=== PATIENT | female | born 1955 | race Caucasian/White ===

== ENCOUNTER 2022-03-16 19:52 | Inpatient (IN) ==
[2022-03-16] MEDS ORDERED: IOPAMIDOL 100 ML BOTTLE IV ONE (19:53)
--- NOTE | 2022-03-16 20:41 | Emergency Department Note ---
Weakness HPI General Chief complaint: Weakness Stated complaint: weakness Time Seen by Provider: 03/16/22 20:40 Source: patient and family (Daughter) Mode of arrival: EMS Limitations: altered mental status (Secondary to her present health condition.) and physical limitation (Poor health prevented her from being able to provide meaningful history.) History of Present Illness HPI Narrative: Narrative: 66-year-old female presents to the emergency department with a chief complaint "I do not feel good" when queried about this the patient kept repeating the same words and could provide no additional information. She indicated she did not have any pain. The rest of the history came from the daughter. Daughter states that the patient has had multiple COPD exacerbations in the past. She states that when her carbon oxide level gets too high the patient's thinking is impaired. She has received BiPAP in the hospital before which has improved her condition. She states she discussed it with her uncle and brother who live in [place]. They [place] [facility] [place] for [place] in [place] but stated that she needed to be assessed here now since this was an acute problem. Patient was ill last week and fell and hit her head. She was seen emergency room and had a CT that was negative and she was discharged home. Her prednisone was in creased during last week. States that she has had some confusion for the past 2 days. States she fell today though they do not think she banged her head they are not sure. Patient's past medical history includes severe COPD, diabetes, anxiety, depression, other. Related Data Home Medications Medication Instructions Recorded Confirmed acetaminophen 500 mg capsule 1,000 mg PO QID PRN 01/14/22 01/27/22 albuterol sulfate 90 mcg/actuation 2 puff inhalation Q4H PRN 01/14/22 01/27/22 aerosol inhaler apixaban 5 mg tablet (Eliquis) 5 mg PO BID 01/14/22 01/27/22 arformoterol 15 mcg/2 mL solution 2 ml inhalation Q12H 01/14/22 01/27/22 for nebulization (Brovana) budesonide 0.25 mg/2 mL suspension 0.25 mg inhalation BID 01/14/22 01/27/22 for nebulization calcium carbonate 600 mg calcium 600 mg PO QDAY 01/14/22 01/27/22 (1,500 mg) tablet (Calcium) cholecalciferol (vitamin D3) 50 50 mcg PO QDAY 01/14/22 01/27/22 mcg (2,000 unit) tablet duloxetine 30 mg capsule,delayed 30 mg PO QAM 01/14/22 01/27/22 release furosemide 20 mg tablet 20 mg PO QDAY 01/14/22 01/27/22 gabapentin 600 mg tablet 600 mg PO TID PRN 01/14/22 01/27/22 insulin aspart U-100 100 unit/mL 1 sliding scale dose subcut 01/14/22 01/27/22 (3 mL) subcutaneous pen (Novolog USEASDIRECTD FlexPen U-100 Insulin aspart) insulin glargine 100 unit/mL (3 15 unit subcut BID 01/14/22 01/27/22 mL) subcutaneous pen (Lantus Solostar U-100 Insulin) ipratropium 0.5 mg-albuterol 3 mg 3 ml inhalation Q6H 01/14/22 01/27/22 (2.5 mg base)/3 mL nebulization soln metformin 1,000 mg tablet 1,000 mg PO BID 01/14/22 01/27/22 metoprolol succinate 25 mg 50 mg PO BID 01/14/22 01/27/22 tablet,extended release 24 hr omeprazole 20 mg capsule,delayed 20 mg PO QDAY 01/14/22 01/27/22 release oxycodone 5 mg tablet 5 mg PO Q8H PRN 01/14/22 01/27/22 pramipexole 0.125 mg tablet 0.125 mg PO QHS 01/14/22 01/27/22 prednisone 10 mg tablet 20 mg PO QDAY 01/14/22 01/27/22 simvastatin 20 mg tablet 20 mg PO QPM 01/14/22 01/27/22 spironolactone 25 mg tablet 12.5 mg PO QDAY 01/14/22 01/27/22 tramadol 50 mg tablet 50 mg PO QID 01/14/22 01/27/22 Previous Rx's Medication Instructions Recorded prednisone 20 mg tablet 40 mg PO QDAY #10 tabs 03/09/22 Allergies Allergy/AdvReac Type Severity Reaction Status Date / Time codeine Allergy Difficulty Verified 03/09/22 07:18 Breathing sulfamethoxazole Allergy Unknown Verified 03/09/22 07:18 [From Bactrim] trimethoprim [From Bactrim] Allergy Difficulty Verified 03/09/22 07:18 Breathing Review of Systems ROS ROS Narrative: Narrative: Limitations: ROS unobtainable due to patients medical condition [facility] Narrative Patient History Narrative: Narrative: Medical/Surgical/Family History All Active Problems (Updated 03/17/22 @ 03:34 by Ulisses King MD) COPD exacerbation (Acute) Acute respiratory failure (Acute) Hepatitis C (Chronic) Smokers' cough (Chronic) Normocytic anemia (Chronic) High cholesterol (Chronic) Heartburn (Chronic) Esophageal spasm (Chronic) CAD (coronary artery disease) (Chronic) Cancer (Chronic) Tachycardia (Chronic) Dyspnea (Chronic) Fatigue (Chronic) Sepsis (Chronic) RLL pneumonia (Chronic) Mela glabrata infection (Chronic) Diabetic foot ulcer (Chronic) Lymphedema (Chronic) Chronic pain (Chronic) HTN (hypertension) (Chronic) Dyslipidemia (Chronic) Opioid overdose (Chronic) Abdominal wall abscess (Chronic) Otitis externa (Chronic) Earache (Chronic) Other obesity due to excess calories (Chronic) Tobacco use (Chronic) Low back pain (Chronic) Dependence on supplemental oxygen (Chronic) Personal history of (healed) other pathological fracture (Chronic) Osteoporosis (Chronic) halfway (current) use of systemic steroids (Chronic) COPD (chronic obstructive pulmonary disease) (Chronic) GERD (gastroesophageal reflux disease) (Chronic) Hyperlipidemia, mixed (Chronic) Pulmonary embolism (Chronic) Afib (Chronic) 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) Hyperglycemia (Chronic) Polyneuropathy (Chronic) DM type 2 (diabetes mellitus, type 2) (Chronic) Hypoxia (Chronic) SOB (shortness of breath) (Chronic) Pneumonia (Chronic) Chronic hypoxemic respiratory failure (Chronic) Bronchitis (Chronic) Medical History Abdominal wall abscess Afib Bronchitis CAD (coronary artery disease) Cancer Mela glabrata infection Chronic hypoxemic respiratory failure Chronic pain COPD (chronic obstructive pulmonary disease) Dependence on supplemental oxygen Diabetic foot ulcer DM type 2 (diabetes mellitus, type 2) Dyslipidemia Dyspnea Earache Esophageal spasm Fatigue GERD (gastroesophageal reflux disease) Heartburn Hepatitis C High cholesterol HTN (hypertension) Hyperglycemia Hyperlipidemia, mixed Hypoxia intermodal customer service (current) use of insulin halfway (current) use of systemic steroids Low back pain Lymphedema Normocytic anemia Opioid overdose Osteoporosis Other obesity due to excess calories Otitis externa Left Personal history of (healed) other pathological fracture Pneumonia Polyneuropathy Pulmonary embolism RLL pneumonia Sepsis Right lower lobe infiltrate and to lesser extent left lower lobe Smokers' cough SOB (shortness of breath) Tachycardia Tobacco use Surgical History History of cataract surgery Both Eyes History of elbow surgery (~1980) Right History of surgery (~1978) Colonization History of tubal ligation (~1992) Family History Mother Heart disease COPD (chronic obstructive pulmonary disease) Father Heart disease Diabetes Hx of heart bypass surgery x4 bypass surgery Social History Smoking Status: Former smoker Alcohol Intake Frequency: does not drink Substance Use: does not use Exam Narrative Narrative: Narrative: General Limitations: altered mental status (Secondary to her present health condition.) and physical limitation (Poor health prevented her from being able to provide meaningful history.) General appearance: Present sleepy Head Head: Present atraumatic and normocephalic Eye Eye: Present normal appearance; Absent scleral icterus Respiratory Respiratory: Present respiratory distress and prolonged expiratory phase; Absent wheezes Cardiovascular Cardiovascular: Present normal rhythm and tachycardia Adbominal Abdominal: Present soft; Absent tenderness Extremities Extremities: Present pedal edema Back Back: Absent tenderness Neurological Neurological: Absent oriented X3 (She was oriented to the location as being a hospital. She could not answer who the president was. For the dates she could say February 2022 but not more specifically.) Skin Skin: Present warm (WNL) and dry Course Vital Signs Vital signs: Vital Signs Temperature 97.5 F 03/16/22 19:52 Pulse Rate 103 H 03/16/22 19:52 Respiratory Rate 16 03/16/22 19:52 Blood Pressure 124/91 03/16/22 19:52 Pulse Oximetry (%) 97 03/16/22 19:52 Oxygen Delivery Method 03/16/22 19:52 Oxygen Flow Rate (L/min) 3 03/16/22 19:52 Temperature 98.8 F 03/17/22 00:57 Pulse Rate 105 H 03/17/22 03:01 Respiratory Rate 20 03/17/22 03:01 Blood Pressure 114/78 03/17/22 03:01 Pulse Oximetry (%) 93 03/17/22 03:01 Oxygen Delivery Method 03/17/22 03:01 Oxygen Flow Rate (L/min) 3 03/17/22 00:52 MDM MDM Narrative Medical decision making narrative: Narrative: 66-year-old female brought in because not feeling good. Differential diagnosis includes COPD exacerbation, pneumonia, sepsis, intracranial bleed, metabolic abnormality, other With the patient being oriented only x2 and questionable history regarding falls I obtain head CT to evaluate for intercranial bleed. Head CT read by the radiologist with the following impression: No CT evidence of acute intracranial hemorrhage CVA or mass-effect. Mild age-related parenchymal volume loss and mild chronic deep white matter ischemic changes. EKG was obtained which revealed sinus rhythm with normal axis and no ischemic changes. Shortness of breath was thought to be secondary to COPD exacerbation but PE was a consideration. D-dimer was obtained and was elevated at 1.98. Based on this I obtained a CT angiogram of the chest looking for PE. This was read by radiologist as showing: Unremarkable CTA of the chest for PE. Diffuse emphysema. Posterior basilar atelectasis. Mild to moderate cardiac enlargement. Moderate diffuse heterogeneous coronary artery calcification. Diffuse compression fractures of thoracic spine. Laboratory: White count was elevated at 11.8 with 78% neutrophils and 12.5% lymphs. Sodium was 141 potassium 4.2 chloride was low at 86. BUN was elevated at 29 with a normal creatinine of 0.6. Glucose was mildly elevated at 118. BNP was markedly elevated at 4220. Surprisingly the patient a pulse ox of 100% on 3 L of O2. Patient is chronically on 3 L of O2. I obtained a VBG because of this illogical oxygenation level. VBG revealed a pH of 7.32. PCO2 112 which is markedly elevated. PO2 of 33 which is normal. HCO3 of 58 which is markedly elevated. Total CT O2 of greater than 50 which is markedly elevated. At this point I assessed the patient to be in acute respiratory failure. I ordered BiPAP. I ordered albuterol DuoNeb. Patient was given Solu-Medrol 125 mg IV. Considered sepsis. I obtained blood cultures x2 and started antibiotics ceftriaxone and azithromycin. I obtained a lactate level which was normal at 0.9. Patient's white count was 11.8 and SIRS criteria was greater than 12.Patient's respiratory rate was normal. She was borderline for tachycardia. I tested the patient for influenza A, influenza B, COVID. Patient was negative for all 3. Chest x-ray obtained. Similar to prior chest x-ray. I discussed the case with the hospitalist . He agreed to meet the patient to the hospital ICU with BiPAP. He requested CTA which was performed and did not show a DVT. Daughter expressed to me that her mother's resuscitation desire was DO NOT RESUSCITATE. Lab Data Result diagrams: 03/16/22 21:05 Labs: Lab Results 03/16/22 03/16/22 03/16/22 Range/Units 21:05 21:05 21:05 WBC 11.8 H (4.5-11.0) K/mcL RBC 4.68 (3.59-5.38) M/mcL Hgb 10.3 L (11.2-15.7) g/dL Hct 39.6 (34.1-44.9) % POC Hct (36-48) MCV 84.6 (80.0-100.0) fL MCH 22.0 L (26.0-34.0) pg MCHC 26.0 L (31.0-36.0) g/dL RDW 16.0 H (11.5-14.5) % Plt Count 259 (140-440) K/mcL MPV 10.8 (8.8-12.5) fL Immature Gran % (Auto) 0.6 H (0.0-0.5) % Neut % (Auto) 77.9 (38.0-78.0) % Lymph % (Auto) 12.5 L (15.5-49.0) % [place] % (Auto) 8.3 (1.0-12.0) % Eos % (Auto) 0.6 (0.0-7.0) % Baso % (Auto) 0.1 (0.0-2.0) % Lymph # (Auto) 1.47 L (1.50-4.80) K/mcL [place] # (Auto) 0.98 H (0.10-0.90) K/mcL Eos # (Auto) 0.07 (0.00-0.70) K/mcL Baso # (Auto) 0.01 (0.00-0.30) K/mcL Immature Gran # 0.07 H (0.00-0.05) K/mcl Absolute Neutrophils 9.18 H (1.80-8.00) K/mcL D-Dimer 1.98 H (0.27-0.50) ug/mL POC VBG pH (7.32-7.42) POC VBG pCO2 at Temp (41-51) POC VBG pO2 (25-40) POC VBG HCO3 (24-28) POC VBG Total CO2 (25-29) POC Venous O2 Sat (40-70) POC VBG Base Excess (-2-2) VBG Lactic Acid (0.5-2) POC Sodium (133-145) POC Potassium (3.3-5.1) POC Chloride (96-108) POC Total CO2 (22-30) POC BUN (6-20) POC Creatinine (0.6-1.2) POC Glucose (70-105) POC WB Ioniz Calcium (1.16-1.32) Total Bilirubin 0.3 (0.1-1.0) mg/dL Direct Bilirubin < 0.2 (0-0.3) mg/dL AST 31 (<32) U/L ALT 17 (<40) U/L Alkaline Phosphatase 61 (39-117) U/L NT-Pro-B Natriuret Pep (<125.0) pg/mL Total Protein 6.1 (5.9-8.4) gm/dL Albumin 3.9 (3.2-5.2) gm/dL Globulin 2.2 (2.2-3.7) gm/dL 03/16/22 03/16/22 03/16/22 Range/Units 21:05 21:15 21:19 WBC (4.5-11.0) K/mcL RBC (3.59-5.38) M/mcL Hgb (11.2-15.7) g/dL Hct (34.1-44.9) % POC Hct 39.0 (36-48) MCV (80.0-100.0) fL MCH (26.0-34.0) pg MCHC (31.0-36.0) g/dL RDW (11.5-14.5) % Plt Count (140-440) K/mcL MPV (8.8-12.5) fL Immature Gran % (Auto) (0.0-0.5) % Neut % (Auto) (38.0-78.0) % Lymph % (Auto) (15.5-49.0) % [place] % (Auto) (1.0-12.0) % Eos % (Auto) (0.0-7.0) % Baso % (Auto) (0.0-2.0) % Lymph # (Auto) (1.50-4.80) K/mcL [place] # (Auto) (0.10-0.90) K/mcL Eos # (Auto) (0.00-0.70) K/mcL Baso # (Auto) (0.00-0.30) K/mcL Immature Gran # (0.00-0.05) K/mcl Absolute Neutrophils (1.80-8.00) K/mcL D-Dimer (0.27-0.50) ug/mL POC VBG pH 7.32 (7.32-7.42) POC VBG pCO2 at Temp 112.0 H* (41-51) POC VBG pO2 33 (25-40) POC VBG HCO3 57.9 H* (24-28) POC VBG Total CO2 > 50.0 H* (25-29) POC Venous O2 Sat 51.0 (40-70) POC VBG Base Excess > 30.0 H* (-2-2) VBG Lactic Acid 0.9 (0.5-2) POC Sodium 141 (133-145) POC Potassium 4.2 (3.3-5.1) POC Chloride 86 L (96-108) POC Total CO2 > 50.0 H* (22-30) POC BUN 29 H (6-20) POC Creatinine 0.6 (0.6-1.2) POC Glucose 118 H (70-105) POC WB Ioniz Calcium 1.11 L (1.16-1.32) Total Bilirubin (0.1-1.0) mg/dL Direct Bilirubin (0-0.3) mg/dL AST (<32) U/L ALT (<40) U/L Alkaline Phosphatase (39-117) U/L NT-Pro-B Natriuret Pep 4220.0 H (<125.0) pg/mL Total Protein (5.9-8.4) gm/dL Albumin (3.2-5.2) gm/dL Globulin (2.2-3.7) gm/dL ED POC Tests ED POC Tests: FLORINA - Influenza A Negative FLORINA - Influenza B Negative [place] - SARS Antigen Negative CC TIME Critical Care Time Critical Care Time: Yes Total Critical Care Time: 40 Attestation: Total critical care time exceeded 40 minutes exclusive of all procedures. Critical care required because the patient respiratory inadequacy secondary to COPD exacerbation. Patient required BiPAP intervention and consideration of whether that the patient might require intubation. Patient's CODE STATUS was determined ahead of time. Discharge Plan Patient/Caregiver Discharge Instructions Pt seen by [facility]/PA only: No Clinical Impression: Acute respiratory failure Patient Disposition: Xfer As Inpt ([facility]) Condition: Serious Discharge Date/Time: 03/17/22 00:57
[2022-03-16] MEDS ORDERED: BENAZEPRIL 10 MG TABLET PO ONE (21:13)
[2022-03-16 21:22] LABS: POC Blood Urea Nitrogen 29 (6-20); POC CO2 > 50.0 (22-30); POC Calcium, Ionized 1.11 (1.16-1.32); POC Chloride 86 (96-108); POC Creatinine 0.6 (0.6-1.2); POC Glucose, Random 118 (70-105); POC Potassium 4.2 (3.3-5.1); POC Sodium 141 (133-145)
[2022-03-16 21:41] LABS: Basophils # (Auto) 0.01 K/mcL (0.00-0.30); Basophils % (Auto) 0.1 % (0.0-2.0); Eosinophils # (Auto) 0.07 K/mcL (0.00-0.70); Eosinophils % (Auto) 0.6 % (0.0-7.0); Hematocrit 39.6 % (34.1-44.9); Hemoglobin 10.3 g/dL (11.2-15.7); Lymphocytes # (Auto) 1.47 K/mcL (1.50-4.80); Lymphocytes % (Auto) 12.5 % (15.5-49.0); Mean Cell Volume 84.6 fL (80.0-100.0); Mean Platelet Volume 10.8 fL (8.8-12.5); Monocytes # (Auto) 0.98 K/mcL (0.10-0.90); Monocytes % (Auto) 8.3 % (1.0-12.0); Neutrophils % (Auto) 77.9 % (38.0-78.0); Platelet Count 259 K/mcL (140-440); RBC 4.68 M/mcL (3.59-5.38); WBC 11.8 K/mcL (4.5-11.0)
[2022-03-16] MEDS ORDERED: methylPREDNISolone SOD SUCC 125 MG/2 ML VIAL IV ONE (21:48)
[2022-03-16] MEDS ORDERED: IPRATROPIUM/ALBUTEROL 3 ML AMPUL.NEB NEB ONE (22:09)
[2022-03-16] MEDS ORDERED: cefTRIAXone 1 GM VIAL IV ONE (22:09)
[2022-03-16] MEDS ORDERED: AZITHROMYCIN 500 MG in DEXTROSE 5% IN WATER 250 ML IV ONE (22:09)
[2022-03-16 22:10] LABS: ALT/SGPT 17 U/L (<40); AST/SGOT 31 U/L (<32); Albumin 3.9 gm/dL (3.2-5.2); Alkaline Phosphatase 61 U/L (39-117); Bilirubin,Direct < 0.2 mg/dL (0-0.3); Bilirubin,Total 0.3 mg/dL (0.1-1.0); Globulin 2.2 gm/dL (2.2-3.7)
[2022-03-17] MEDS ORDERED: cefTRIAXone 1 GM VIAL IV SCH (00:15)
[2022-03-17] MEDS ORDERED: AZITHROMYCIN 250 MG in DEXTROSE 5% IN WATER 250 ML IV SCH (00:15)
[2022-03-17] MEDS: IPRATROPIUM/ALBUTEROL 3 ML AMPUL.NEB NEB SCH ×2 (01:15→06:51)
[2022-03-17] MEDS: 0.9 % SODIUM CHLORIDE 10 ML SYRINGE IV SCH ×6 (02:21→20:13)
[2022-03-17] MEDS: ALBUTEROL SULFATE 2.5 MG/3 ML NEBULIZER NEB SCH ×3 (02:22→14:31)
--- NOTE | 2022-03-17 03:00 | XRay Report ---
CLINICAL INFORMATION: COPD COMPARISON: 11/13/2021 and 03/09/2022 TECHNIQUE: Portable FINDINGS: The heart is mildly enlarged-slightly increased. Mediastinum is unremarkable. The upper lobe pulmonary vasculature is mildly distended compared to the earliest baseline film. Chronic bronchitis noted. Moderate vague region of airspace disease has progressed in the right mid and lower lung-suspect infiltrate superimposed upon mild fibrosis. Minimal airspace disease left base was pre-existing and likely atelectasis or fibrosis. IMPRESSION: Moderate vague right mid and lower lung infiltrate. Mild underlying CHF or volume overload Interpreted and Authenticated by: Nick Rodriguez 03/17/22
--- NOTE | 2022-03-17 03:22 | Cat Scan Report ---
CLINICAL INFORMATION: Shortness of breath and elevated d-dimer. History of COPD COMPARISON: Chest x-rays 11/13/2021 and 03/16/2022. TECHNIQUE: 80ml of Isovue-370 were injected intravenously. Using SmartPrep to maximize pulmonary artery opacification, .625mm helical slices were obtained from the lung apices through the lung bases. Following reconstruction, 2.5 mm sagittal, coronal, and axial reformations were processed. The exam was reviewed at mediastinal, lung, and bone windows. The exam was performed using radiation dose optimization techniques including, but not limited to, automated exposure control, adjustment of the mA and/or kV according to patient size and use of iterative reconstruction technique. FINDINGS: Pulmonary parenchymal windows show severe centrilobular emphysema featuring chronic bronchitis with elevated lung volumes and wall thickening/dilatation of bronchi. There are multiple bullae nearly replacing the upper lobe parenchyma and also scattered throughout both lower right middle lobes. Moderate band of subsegmental atelectasis and/or fibrosis seen throughout both posterior lower lobes. There are no definite infiltrates or interstitial edema.. Pleural spaces are unremarkable-no effusions. Mediastinal windows show the heart is moderately enlarged with moderate fibrofatty calcific plaque scattered within the coronary arteries.. The central pulmonary arteries are enlarged with the main pulmonary diameter 3.6 cm. Findings compatible with pulmonary hypertension related to COPD. No evidence of embolus. Thoracic aorta is also normal diameter and well-opacified. There is no adenopathy in the mediastinal, hilar or axillary regions. Esophagus is grossly normal. The thyroid is unremarkable. Bone windows show acute mildly displaced fractures of the posterior right first and second ribs. Multiple osteoporotic compression fractures appreciated mild T1, severe T2, moderate T3, moderate C4, moderate T7 moderate to severe T9 and mild T12 and L1. Chronicity unknown. Images through the superior abdomen are unremarkable. IMPRESSION: 1. No evidence of pulmonary embolus or other acute cardiopulmonary process. 2. Severe centrilobular emphysema with pulmonary hypertension. 3. Moderate cardiomegaly with moderate fibrofatty and calcific atherosclerotic plaque in the coronary arteries. Suspect significant coronary stenosis. Consider cardiology referral for stress testing. 4. Multiple osteoporotic compression fractures throughout the thoracic spine of indeterminate chronicity. Consider DEXA scanning. Patient may benefit from medical therapy for future fracture prevention 5. Acute minimally displaced fractures of the posterior right first and second ribs Interpreted and Authenticated by: Nick Rodriguez 03/17/22
--- NOTE | 2022-03-17 08:38 | Internal Med History&Physical ---
HPI History of Present Illness Patient information: Note initiated : 03/17/22 at 8:29 am Service Date, if different from initiated Date: [] Patient: Ki Fontana a 66 y/o F admitted on 03/17/22 for weakness. Chief Complaint: [] History of present illness: Ms. Elsa Bunch is a 66 year old F Presents the ED for increased weakness and failure to thrive. Patient says she just did not feel right and she stated to triage that she was having a COPD attack. Per EMS she has been having falls recently. She was mildly tachycardic in the ER and mildly tachypneic. Oxygen saturations were adequate but she was retaining CO2. And her pH was borderline low on VBG of 7.32. She had very mild leukocytosis 11.8. Elevated D-dimer and CTA showed no PE but severe emphysema. No infiltrates. It did show acute minimally displaced fracture of the posterior right first and second ribs. Metabolic alkalosis with this CO2 greater than 50. Per notes the daughter said that patient has a history of COPD exacerbations when her CO2 level gets high as her thinking is impaired. Family's been looking for a correction for her [place]. Patient placed on BiPAP overnight. Feeling a little better. She does complain of shortness of breath wheezing and mild cough and some nausea. Sounds like she supposed to get a sleep study outpatient but has not done that yet. She does follow with Dr. Beltran. Was off BiPAP for a while this morning but needed to go back on BiPAP. f/u vbg. Review of Systems: Pertinent positives as above. Denies headache/fever/chills/vomiting/chest or abdominal pain//diarrhea. Remaining 10 point review of system reviewed negative PFSH PFSH All Active Problems (Updated 03/17/22 @ 03:34 by Ulisses King MD) COPD exacerbation (Acute) Acute respiratory failure (Acute) Hepatitis C (Chronic) Smokers' cough (Chronic) Normocytic anemia (Chronic) High cholesterol (Chronic) Heartburn (Chronic) Esophageal spasm (Chronic) CAD (coronary artery disease) (Chronic) Cancer (Chronic) Tachycardia (Chronic) Dyspnea (Chronic) Fatigue (Chronic) Sepsis (Chronic) RLL pneumonia (Chronic) Mela glabrata infection (Chronic) Diabetic foot ulcer (Chronic) Lymphedema (Chronic) Chronic pain (Chronic) HTN (hypertension) (Chronic) Dyslipidemia (Chronic) Opioid overdose (Chronic) Abdominal wall abscess (Chronic) Otitis externa (Chronic) Earache (Chronic) Other obesity due to excess calories (Chronic) Tobacco use (Chronic) Low back pain (Chronic) Dependence on supplemental oxygen (Chronic) Personal history of (healed) other pathological fracture (Chronic) Osteoporosis (Chronic) long-term (current) use of systemic steroids (Chronic) COPD (chronic obstructive pulmonary disease) (Chronic) GERD (gastroesophageal reflux disease) (Chronic) Hyperlipidemia, mixed (Chronic) Pulmonary embolism (Chronic) Afib (Chronic) long-term (current) use of insulin (Chronic) Hyperglycemia (Chronic) Polyneuropathy (Chronic) DM type 2 (diabetes mellitus, type 2) (Chronic) Hypoxia (Chronic) SOB (shortness of breath) (Chronic) Pneumonia (Chronic) Chronic hypoxemic respiratory failure (Chronic) Bronchitis (Chronic) Medical History Abdominal wall abscess Afib Bronchitis CAD (coronary artery disease) Cancer Mela glabrata infection Chronic hypoxemic respiratory failure Chronic pain COPD (chronic obstructive pulmonary disease) Dependence on supplemental oxygen Diabetic foot ulcer DM type 2 (diabetes mellitus, type 2) Dyslipidemia Dyspnea Earache Esophageal spasm Fatigue GERD (gastroesophageal reflux disease) Heartburn Hepatitis C High cholesterol HTN (hypertension) Hyperglycemia Hyperlipidemia, mixed Hypoxia long-term (current) use of insulin long-term (current) use of systemic steroids Low back pain Lymphedema Normocytic anemia Opioid overdose Osteoporosis Other obesity due to excess calories Otitis externa Left Personal history of (healed) other pathological fracture Pneumonia Polyneuropathy Pulmonary embolism RLL pneumonia Sepsis Right lower lobe infiltrate and to lesser extent left lower lobe Smokers' cough SOB (shortness of breath) Tachycardia Tobacco use Surgical History History of cataract surgery Both Eyes History of elbow surgery (~1980) Right History of surgery (~1978) Colonization History of tubal ligation (~1992) Family History Mother Heart disease COPD (chronic obstructive pulmonary disease) Father Heart disease Diabetes Hx of heart bypass surgery x4 bypass surgery Social History marital status: occupational status: unemployed and disabled smoking status: Former smoker smoking status start date: 02/27/74 smoking status stop date: 02/27/18 alcohol intake frequency: does not drink substance use type: does not use MEDS/ALLERGIES Home Medications and Allergies Home Medications Medication Instructions Recorded Confirmed Type acetaminophen 500 mg capsule 1,000 mg PO QID PRN 01/14/22 01/27/22 History albuterol sulfate 90 mcg/actuation 2 puff inhalation Q4H PRN 01/14/22 03/17/22 History aerosol inhaler Shortness Of Breath apixaban 5 mg tablet (Eliquis) 5 mg PO BID 01/14/22 03/17/22 History arformoterol 15 mcg/2 mL solution 2 ml inhalation Q12H 01/14/22 01/27/22 History for nebulization (Brovana) budesonide 0.25 mg/2 mL suspension 0.25 mg inhalation BID 01/14/22 01/27/22 History for nebulization calcium carbonate 600 mg calcium 600 mg PO QDAY 01/14/22 01/27/22 History (1,500 mg) tablet (Calcium) cholecalciferol (vitamin D3) 50 50 mcg PO QDAY 01/14/22 01/27/22 History mcg (2,000 unit) tablet duloxetine 30 mg capsule,delayed 30 mg PO QAM 01/14/22 03/17/22 History release furosemide 20 mg tablet 20 mg PO QDAY 01/14/22 03/17/22 History gabapentin 600 mg tablet 600 mg PO TID 01/14/22 03/17/22 History insulin aspart U-100 100 unit/mL 1 sliding scale dose subcut ACHS 01/14/22 03/17/22 History (3 mL) subcutaneous pen (Novolog FlexPen U-100 Insulin aspart) insulin glargine 100 unit/mL (3 15 unit subcut BID 01/14/22 03/17/22 History mL) subcutaneous pen (Lantus Solostar U-100 Insulin) ipratropium 0.5 mg-albuterol 3 mg 3 ml inhalation Q6H 01/14/22 01/27/22 History (2.5 mg base)/3 mL nebulization soln metformin 1,000 mg tablet 1,000 mg PO BID 01/14/22 03/17/22 History metoprolol succinate 25 mg 50 mg PO BID 01/14/22 03/17/22 History tablet,extended release 24 hr omeprazole 20 mg capsule,delayed 20 mg PO QDAY 01/14/22 03/17/22 History release oxycodone 5 mg tablet 5 mg PO Q6HP PRN Pain 01/14/22 03/17/22 History pramipexole 0.125 mg tablet 0.125 mg PO QHS 01/14/22 03/17/22 History prednisone 10 mg tablet 20 mg PO QDAY 01/14/22 03/17/22 History simvastatin 20 mg tablet 20 mg PO QPM 01/14/22 03/17/22 History spironolactone 25 mg tablet 12.5 mg PO QDAY 01/14/22 03/17/22 History tramadol 50 mg tablet 50 mg PO QID 01/14/22 03/17/22 History Allergies Allergy/AdvReac Type Severity Reaction Status Date / Time codeine Allergy Severe Difficulty Verified 03/17/22 06:57 Breathing sulfamethoxazole Allergy Severe Difficulty Verified 03/17/22 06:57 [From Bactrim] Breathing trimethoprim [From Bactrim] Allergy Severe Difficulty Verified 03/17/22 06:57 Breathing EXAM Constitutional Vitals: Temp Pulse Resp BP Pulse Ox O2 Del Method O2 Flow Rate 98.2 F 103 H 35 H 104/63 94 3 03/17/22 04:01 03/17/22 07:01 03/17/22 07:01 03/17/22 07:01 03/17/22 07:01 03/17/22 07:01 03/17/22 00:52 Exam: General: Awake, no acute Distress, obese Eyes/N/T: EOMI, PERRL, Head/Neck: neck supple, normocephalic atraumatic CV: RRR, No murmurs, normal s1/s2 Pulm: Mild rales b/l, diminished BS b/l Abd: soft, nontender, +BS x4 Ext: no clubbing/cyanosis/edema Neuro: Alert, slightly drowsy. Hard of hearing., no focal deficits, moves all extremities, CN 2-12 grossly intact, sensations intact b/l upper/lower Skin: warm/dry DATA Data Completed and Pending Labs: Labs from last 24 hours 03/17/22 03/16/22 03/16/22 07:50 21:19 21:15 WBC RBC Hgb Hct POC Hct 39.0 MCV MCH MCHC RDW Plt Count MPV Immature Gran % (Auto) Neut % (Auto) Lymph % (Auto) [place] % (Auto) Eos % (Auto) Baso % (Auto) Lymph # (Auto) [place] # (Auto) Eos # (Auto) Baso # (Auto) Immature Gran # Absolute Neutrophils D-Dimer POC VBG pH 7.49 H 7.32 POC VBG pCO2 at Temp 59.7 H 112.0 H* POC VBG pO2 38 33 POC VBG HCO3 45.5 H* 57.9 H* POC VBG Total CO2 47.0 H* > 50.0 H* POC Venous O2 Sat 74.0 H 51.0 POC VBG Base Excess 22.0 H* > 30.0 H* VBG Lactic Acid 2.0 0.9 POC Sodium 141 POC Potassium 4.2 POC Chloride 86 L POC Total CO2 > 50.0 H* POC BUN 29 H POC Creatinine 0.6 POC Glucose 118 H POC WB Ioniz Calcium 1.11 L Total Bilirubin Direct Bilirubin AST ALT Alkaline Phosphatase NT-Pro-B Natriuret Pep Total Protein Albumin Globulin 03/16/22 03/16/22 03/16/22 21:05 21:05 21:05 WBC 11.8 H RBC 4.68 Hgb 10.3 L Hct 39.6 POC Hct MCV 84.6 MCH 22.0 L MCHC 26.0 L RDW 16.0 H Plt Count 259 MPV 10.8 Immature Gran % (Auto) 0.6 H Neut % (Auto) 77.9 Lymph % (Auto) 12.5 L [place] % (Auto) 8.3 Eos % (Auto) 0.6 Baso % (Auto) 0.1 Lymph # (Auto) 1.47 L [place] # (Auto) 0.98 H Eos # (Auto) 0.07 Baso # (Auto) 0.01 Immature Gran # 0.07 H Absolute Neutrophils 9.18 H D-Dimer 1.98 H POC VBG pH POC VBG pCO2 at Temp POC VBG pO2 POC VBG HCO3 POC VBG Total CO2 POC Venous O2 Sat POC VBG Base Excess VBG Lactic Acid POC Sodium POC Potassium POC Chloride POC Total CO2 POC BUN POC Creatinine POC Glucose POC WB Ioniz Calcium Total Bilirubin Direct Bilirubin AST ALT Alkaline Phosphatase NT-Pro-B Natriuret Pep 4220.0 H Total Protein Albumin Globulin 03/16/22 21:05 WBC RBC Hgb Hct POC Hct MCV MCH MCHC RDW Plt Count MPV Immature Gran % (Auto) Neut % (Auto) Lymph % (Auto) [place] % (Auto) Eos % (Auto) Baso % (Auto) Lymph # (Auto) [place] # (Auto) Eos # (Auto) Baso # (Auto) Immature Gran # Absolute Neutrophils D-Dimer POC VBG pH POC VBG pCO2 at Temp POC VBG pO2 POC VBG HCO3 POC VBG Total CO2 POC Venous O2 Sat POC VBG Base Excess VBG Lactic Acid POC Sodium POC Potassium POC Chloride POC Total CO2 POC BUN POC Creatinine POC Glucose POC WB Ioniz Calcium Total Bilirubin 0.3 Direct Bilirubin < 0.2 AST 31 ALT 17 Alkaline Phosphatase 61 NT-Pro-B Natriuret Pep Total Protein 6.1 Albumin 3.9 Globulin 2.2 A/P Narrative A/P Narrative: A: *Acute on chronic hypercapnic Respiratory failure: -on bipap o/n *AECOPD (on 3@home): on prednisone at home -Follows with Dr. Beltran *Encephalopathy, metabolic: 2/2 above *Immunosuppressed: On chronic prednisone 2/2 COPD *Generalized weakness/deconditioning/FTT/falling: *Metabolic alkalosis: 2/2 chronic resp failure *?PIERO: *HTN: on BB/lasix/aldactnoe *DM w/neuropathy: -a1c 7.4 *Chronic pain: *GERD: *Obesity: BMI 30 *Hypomagnesemia: P: -f/u VBG -steroids (wean to home regimen) -nebs, IS/acapella, RT -empiric abx -Monitor/trend and replace electrolytes -cont BB/aldactone/lasix -basal and SSI -pt/ot -CM for placement -qhs cpap -Follow-up closely with Pulmonology, outpatient sleep study -ppx: apixaban / home ppi DNR Time Spent With Patient Time: Total time spent is greater than 50% in coordination of care (as documented) at patient's floor/unit and/or counseling patient: Critical Care Time: Yes Total Critical Care Time: 75 QUALITY VTE Deep Vein Thrombosis/Pulmonary Embolism Present on Admission: No
[2022-03-17] MEDS ORDERED: POLYETHYLENE GLYCOL 3350 17 GM PACKET PO PRN (08:47)
[2022-03-17] MEDS ORDERED: ONDANSETRON 4 MG/2 ML VIAL IV PRN (08:47)
[2022-03-17] MEDS ORDERED: SENNOSIDES 1 TABLET PO PRN (08:47)
[2022-03-17] MEDS ORDERED: MAGNESIUM SULFATE 2 GM/50 ML BAG IV PRN (08:47)
[2022-03-17] MEDS ORDERED: POTASSIUM CHLORIDE 40 MEQ in DEXTROSE 5% IN WATER 500 ML IV PRN (08:47)
[2022-03-17] MEDS ORDERED: POTASSIUM CHLORIDE 20 MEQ TABLET PO PRN ×2 (08:47)
[2022-03-17] MEDS ORDERED: IPRATROPIUM/ALBUTEROL 3 ML AMPUL.NEB NEB PRN (08:49)
[2022-03-17] MEDS ORDERED: DEXTROSE 31 GM ORAL.SUSP PO PRN (08:49)
[2022-03-17] MEDS ORDERED: DEXTROSE 50% 50 ML VIAL IV PRN (08:49)
[2022-03-17] MEDS ORDERED: FAMOTIDINE/PF 20 MG/2 ML VIAL IV SCH (09:00)
[2022-03-17] MEDS ORDERED: IPRATROPIUM/ALBUTEROL 3 ML AMPUL.NEB NEB SCH (09:00)
[2022-03-17 09:04] LABS: Basophils # (Auto) 0.01 K/mcL (0.00-0.30); Basophils % (Auto) 0.1 % (0.0-2.0); Eosinophils # (Auto) 0 K/mcL (0.00-0.70); Eosinophils % (Auto) 0 % (0.0-7.0); Hemoglobin 9.3 g/dL (11.2-15.7); Lymphocytes # (Auto) 0.69 K/mcL (1.50-4.80); Lymphocytes % (Auto) 7.4 % (15.5-49.0); Mean Cell Volume 82.2 fL (80.0-100.0); Mean Corpuscular HGB Conc 26.6 g/dL (31.0-36.0); Mean Platelet Volume 11.1 fL (8.8-12.5); Monocytes % (Auto) 1.1 % (1.0-12.0); Neutrophils % (Auto) 90.6 % (38.0-78.0); Platelet Count 260 K/mcL (140-440); RBC 4.26 M/mcL (3.59-5.38); Red Cell Distribution Width 15.9 % (11.5-14.5); WBC 9.3 K/mcL (4.5-11.0)
[2022-03-17 09:45] LABS: ALT/SGPT 15 U/L (<40); AST/SGOT 26 U/L (<32); Albumin 3.6 gm/dL (3.2-5.2); Albumin/Globulin Ratio 1.7 (1.0-2.3); Alkaline Phosphatase 62 U/L (39-117); Bilirubin,Direct < 0.2 mg/dL (0-0.3); Bilirubin,Total 0.4 mg/dL (0.1-1.0); Blood Urea Nitrogen 22 mg/dL (8-23); Calcium 8.9 mg/dL (8.6-10.4); Carbon Dioxide 39 mmol/L (22-30); Chloride 88 mmol/L (96-108); Globulin 2.1 gm/dL (2.2-3.7); Glomerular Filtration Rate 101; Glucose 316 mg/dL (70-105); Lactate Dehydrogenase 531 U/L (135-225); Phosphorous 2.6 mg/dL (2.5-4.5); Triglycerides 163 mg/dL (<150); Uric Acid 5.7 mg/dL (2.5-8.0)
[2022-03-17] MEDS: OMEPRAZOLE 20 MG CAPSULE PO SCH (10:00)
[2022-03-17] MEDS: APIXABAN 5 MG TABLET PO SCH ×2 (10:00→20:12)
[2022-03-17] MEDS: DOCUSATE SODIUM 100 MG CAPSULE PO SCH ×2 (10:00→20:12)
[2022-03-17] MEDS: GABAPENTIN 300 MG CAPSULE PO SCH ×3 (10:00→20:12)
[2022-03-17] MEDS: DULoxetine 30 MG CAPSULE PO SCH (10:00)
[2022-03-17] MEDS: METOPROLOL SUCCINATE 25 MG TAB.XL.24H PO SCH ×2 (10:00→20:12)
[2022-03-17] MEDS: SPIRONOLACTONE 25 MG TABLET PO SCH (10:00)
[2022-03-17] MEDS: INSULIN GLARGINE, HUMAN 1 UNIT/0.01 ML SQ SCH ×2 (10:01→20:13)
[2022-03-17] MEDS: FUROSEMIDE 20 MG TABLET PO SCH (10:01)
[2022-03-17] MEDS: INSULIN LISPRO 1 UNIT/0.01 ML UNIT SQ SCH ×4 (10:01→20:12)
[2022-03-17 10:12] LABS: Hemoglobin A1C 7.4 % Hgb (4.0-6.0)
[2022-03-17] MEDS: cefTRIAXone 1 GM VIAL IV SCH (13:06)
[2022-03-17] MEDS: AZITHROMYCIN 250 MG in DEXTROSE 5% IN WATER 250 ML IV SCH (13:07)
[2022-03-17] MEDS: methylPREDNISolone SOD SUCC 125 MG/2 ML VIAL IV SCH ×2 (13:11→21:47)
[2022-03-17] MEDS: LEVALBUTEROL 1.25 MG/3 ML AMPUL.NEB NEB SCH ×2 (13:34→20:11)
[2022-03-17] MEDS: PRAMIPEXOLE 0.25 MG TABLET PO SCH (20:11)
[2022-03-17] MEDS: SIMVASTATIN 20 MG TABLET PO SCH (20:12)
[2022-03-18] MEDS: LEVALBUTEROL 1.25 MG/3 ML AMPUL.NEB NEB SCH ×3 (00:48→17:40)
[2022-03-18] MEDS: methylPREDNISolone SOD SUCC 125 MG/2 ML VIAL IV SCH (05:38)
[2022-03-18] MEDS: 0.9 % SODIUM CHLORIDE 10 ML SYRINGE IV SCH ×5 (05:38→21:17)
--- NOTE | 2022-03-18 07:52 | EKG ---
[facility] Test Date: 2022-03-16 Pat Name: Ki Bunch Department: ED Room: Gender: Female Job Developer: TERRELL : 1955 Requested By: Ulisses King Order Number: [id number] Reading MD: Naveen Walker Measurements Intervals [place] Rate: 101 P: 78 MT: 137 QRS: 63 QRSD: 99 T: 135 QT: 361 QTc: 469 Interpretive Statements Sinus tachycardia Excessive artifact Nonspecific ST abnormalitiy. Diffuse Electronically Signed On 03-18-2022 7:51:52 PST by Naveen Walker /store/[email or web address]/[id number]/[id number].pdf
[2022-03-18 07:56] LABS: ALT/SGPT 15 U/L (<40); AST/SGOT 28 U/L (<32); Albumin 3.5 gm/dL (3.2-5.2); Albumin/Globulin Ratio 2.1 (1.0-2.3); Alkaline Phosphatase 55 U/L (39-117); Bilirubin,Direct < 0.2 mg/dL (0-0.3); Bilirubin,Total 0.4 mg/dL (0.1-1.0); Blood Urea Nitrogen 19 mg/dL (8-23); Calcium 8.6 mg/dL (8.6-10.4); Carbon Dioxide 40 mmol/L (22-30); Chloride 88 mmol/L (96-108); Globulin 1.7 gm/dL (2.2-3.7); Glomerular Filtration Rate 109; Glucose 199 mg/dL (70-105); Lactate Dehydrogenase 441 U/L (135-225); Phosphorous 2.6 mg/dL (2.5-4.5); Triglycerides 113 mg/dL (<150); Uric Acid 4.5 mg/dL (2.5-8.0)
[2022-03-18] MEDS ORDERED: acetaZOLAMIDE SOD 500 MG VIAL IV ONE (08:05)
--- NOTE | 2022-03-18 08:08 | Internal Med Progress Note ---
SUBJECTIVE Subjective Patient information: Note initiated : 03/18/22 at 8:03 am Service Date, if different from initiated Date: [] Patient: Ki Fontana a 66 y/o F admitted on 03/17/22 for weakness. Chief Complaint: [] Interval history: History of present illness: Ms. Elsa Bunch is a 66 year old F Presents the ED for increased weakness and failure to thrive. Patient says she just did not feel right and she stated to triage that she was having a COPD attack. Per EMS she has been having falls recently. She was mildly tachycardic in the ER and mildly tachypneic. Oxygen saturations were adequate but she was retaining CO2. And her pH was borderline low on VBG of 7.32. She had very mild leukocytosis 11.8. Elevated D-dimer and CTA showed no PE but severe emphysema. No infiltrates. It did show acute minimally displaced fracture of the posterior right first and second ribs. Metabolic alkalosis with this CO2 greater than 50. Per notes the daughter said that patient has a history of COPD exacerbations when her CO2 level gets high as her thinking is impaired. Family's been looking for a residential for her [place]. Patient placed on BiPAP overnight. Feeling a little better. She does complain of shortness of breath wheezing and mild cough and some nausea. Sounds like she supposed to get a sleep study outpatient but has not done that yet. She does follow with Dr. Beltran. Was off BiPAP for a while this morning but needed to go back on BiPAP. f/u vbg. 03/18 Patient on CPAP overnight. Now on home regimen of nasal cannula oxygen. Patient feeling a little better. Does have cough and shortness of breath but improved. Metabolic alkalosis on labs. Review of Systems: denies headache/fever/chills/nausea/vomiting/chest or abdominal pain/diarrhea. Otherwise see above. Constitutional Vitals: Vital Signs Temp Pulse Resp BP Pulse Ox O2 Del Method O2 Flow Rate 97.2 F 109 H 31 H 146/97 91 Nasal Cannula 3 03/18/22 07:00 03/18/22 06:01 03/18/22 06:01 03/18/22 06:01 03/18/22 07:00 03/18/22 07:00 03/18/22 07:00 Period Temp Pulse Resp BP Sys/[place] Pulse Ox O2 Del Method O2 Flow Rate Last 24 Hr 96.2 F-97.2 F 74-114 16-34 92-147/49-100 90-97 BiPAP-Nasal Cannula, CPAP 3-3 Intake and Output 03/17/22 03/18/22 03/18/22 19:59 03:59 11:59 Intake Total 970 40 Output Total 600 901 100 Balance 370 -861 -100 Weight 72.711 kg Intake & Output: Intake & Output 03/17/22 03/18/22 03/18/22 19:59 03:59 11:59 Intake Total 970 40 Output Total 600 901 100 Balance 370 -861 -100 Weight 72.711 kg Intake: IV 250 Zithromax 250 mg In Dextrose 5% 250 in Water 250 ml @ 250 mls/hr IV Q24H [facility] Rx#:[id number] Oral 720 40 Output: Void Amount 600 900 100 # of times incontinent of urine 1 Other: Meal Dinner Percent of Meal Consumed 100% Feeding Ability Independent Urine Appearance Cloudy Clear Clear Urine Color Bright Yellow Bright Yellow Dark Yellow Urine Odor Strong Strong Strong Exam: General: Awake, no acute Distress, obese Eyes/N/T: EOMI, , Head/Neck: neck supple, CV: Mild tacky but regular, No murmurs, Pulm: diminished BS b/l, no wheezing Abd: soft, nontender, +BS x4 Ext: no clubbing/cyanosis/edema Neuro: Alert, awake, Hard of hearing., no focal deficits, moves all extremities Skin: warm/dry OBJ DATA Labs 03/17/22 07:53 03/18/22 05:05 Labs: Abnormal Lab Results 03/18/22 03/17/22 03/17/22 05:05 14:29 07:53 WBC Hgb MCH MCHC RDW Immature Gran % (Auto) Neut % (Auto) Lymph % (Auto) Lymph # (Auto) [place] # (Auto) Immature Gran # Absolute Neutrophils D-Dimer POC VBG pH 7.51 H POC VBG pCO2 at Temp 64.2 H* POC VBG HCO3 51.7 H* POC VBG Total CO2 > 50.0 H* POC Venous O2 Sat POC VBG Base Excess 29.0 H* VBG Lactic Acid 2.6 H POC Chloride Chloride 88 L 88 L Carbon Dioxide 40 H 39 H POC Total CO2 POC BUN Creatinine 0.4 L 0.5 L Glucose 199 H 316 H POC Glucose Hemoglobin A1c POC WB Ioniz Calcium Magnesium 1.4 L Lactate Dehydrogenase 441 H 531 H C-Reactive Protein 1.20 H NT-Pro-B Natriuret Pep Total Protein 5.2 L 5.7 L Globulin 1.7 L 2.1 L Triglycerides 163 H 03/17/22 03/17/22 03/17/22 07:53 07:50 07:50 WBC Hgb 9.3 L MCH 21.8 L MCHC 26.6 L RDW 15.9 H Immature Gran % (Auto) 0.8 H Neut % (Auto) 90.6 H Lymph % (Auto) 7.4 L Lymph # (Auto) 0.69 L [place] # (Auto) Immature Gran # 0.07 H Absolute Neutrophils 8.44 H D-Dimer POC VBG pH 7.49 H POC VBG pCO2 at Temp 59.7 H POC VBG HCO3 45.5 H* POC VBG Total CO2 47.0 H* POC Venous O2 Sat 74.0 H POC VBG Base Excess 22.0 H* VBG Lactic Acid POC Chloride Chloride Carbon Dioxide POC Total CO2 POC BUN Creatinine Glucose POC Glucose Hemoglobin A1c 7.4 H POC WB Ioniz Calcium Magnesium Lactate Dehydrogenase C-Reactive Protein NT-Pro-B Natriuret Pep Total Protein Globulin Triglycerides 03/16/22 03/16/22 03/16/22 21:19 21:15 21:05 WBC Hgb MCH MCHC RDW Immature Gran % (Auto) Neut % (Auto) Lymph % (Auto) Lymph # (Auto) [place] # (Auto) Immature Gran # Absolute Neutrophils D-Dimer POC VBG pH POC VBG pCO2 at Temp 112.0 H* POC VBG HCO3 57.9 H* POC VBG Total CO2 > 50.0 H* POC Venous O2 Sat POC VBG Base Excess > 30.0 H* VBG Lactic Acid POC Chloride 86 L Chloride Carbon Dioxide POC Total CO2 > 50.0 H* POC BUN 29 H Creatinine Glucose POC Glucose 118 H Hemoglobin A1c POC WB Ioniz Calcium 1.11 L Magnesium Lactate Dehydrogenase C-Reactive Protein NT-Pro-B Natriuret Pep 4220.0 H Total Protein Globulin Triglycerides 03/16/22 03/16/22 21:05 21:05 WBC 11.8 H Hgb 10.3 L MCH 22.0 L MCHC 26.0 L RDW 16.0 H Immature Gran % (Auto) 0.6 H Neut % (Auto) Lymph % (Auto) 12.5 L Lymph # (Auto) 1.47 L [place] # (Auto) 0.98 H Immature Gran # 0.07 H Absolute Neutrophils 9.18 H D-Dimer 1.98 H POC VBG pH POC VBG pCO2 at Temp POC VBG HCO3 POC VBG Total CO2 POC Venous O2 Sat POC VBG Base Excess VBG Lactic Acid POC Chloride Chloride Carbon Dioxide POC Total CO2 POC BUN Creatinine Glucose POC Glucose Hemoglobin A1c POC WB Ioniz Calcium Magnesium Lactate Dehydrogenase C-Reactive Protein NT-Pro-B Natriuret Pep Total Protein Globulin Triglycerides Meds: Medications Acetaminophen (Acetaminophen 325 Mg Tablet) 650 mg PO Q6HP PRN; Protocol PRN Reason: Per Pain Protocol/Fever > 101 Albuterol/Ipratropium (Ipratropium/Albuterol 3 Ml Ampul.Neb) 3 ml NEB Q4HP PRN PRN Reason: Shortness Of Breath Apixaban (Apixaban 5 Mg Tablet) 5 mg PO BID [facility] Last Admin: 03/17/22 20:12 Dose: 5 mg Ceftriaxone Sodium (Ceftriaxone 1 Gm Vial) 1 gm IV Q24H [facility]; Protocol Last Admin: 03/17/22 13:06 Dose: 1 gm Dextrose (Dextrose 50% 50 Ml Vial) 0 ml IV UD PRN PRN Reason: Per Sliding Scale Diagnostic Test (Pha) (Accu-Chek 1 Each Strip) 1 each FS ACHS [facility] Last Admin: 03/18/22 07:52 Dose: 1 each Docusate Sodium (Docusate Sodium 100 Mg Capsule) 100 mg PO BID [facility] Last Admin: 03/17/22 20:12 Dose: 100 mg Duloxetine HCl (Duloxetine 30 Mg Capsule) 30 mg PO QAM [facility] Last Admin: 03/17/22 10:00 Dose: 30 mg Furosemide (Furosemide 20 Mg Tablet) 20 mg PO QDAY [facility] Last Admin: 03/17/22 10:01 Dose: 20 mg Gabapentin (Gabapentin 300 Mg Capsule) 600 mg PO TID [facility] Last Admin: 03/17/22 20:12 Dose: 600 mg Glucose (Dextrose 31 Gm Oral.Susp) 15 gm PO PRN PRN PRN Reason: Hypoglycemia Azithromycin 250 mg/ Dextrose 250 mls @ 250 mls/hr IV Q24H [facility]; Protocol Stop: 03/18/22 13:59 Last Infusion: 03/17/22 14:10 Dose: Infused Potassium Chloride 40 meq/ (Dextrose) 520 mls @ 130 mls/hr IV UD PRN PRN Reason: Potassium < 3 Magnesium Sulfate (Magnesium Sulfate) 2 gm in 50 mls @ 50 mls/hr IV UD PRN PRN Reason: Magnesium </= 1.6 Last Infusion: 03/17/22 11:40 Dose: Infused Insulin Glargine (Insulin Glargine, Human 1 Unit/0.01 Ml) 15 unit SQ BID [facility] Last Admin: 03/17/22 20:13 Dose: 15 units Insulin Human Lispro (Insulin Lispro 1 Unit/0.01 Ml Unit) 0 unit SQ ACHS [facility]; Protocol Last Admin: 03/17/22 20:12 Dose: 4 units Levalbuterol HCl (Levalbuterol 1.25 Mg/3 Ml Ampul.Neb) 1.25 mg NEB Q8H [facility] Last Admin: 03/18/22 00:48 Dose: 1.25 mg Methylprednisolone Sodium Succinate (Methylprednisolone Sod Succ 125 Mg/2 Ml Vial) 62.5 mg IV Q8 [facility] Last Admin: 03/18/22 05:38 Dose: 62.5 mg Metoprolol Succinate (Metoprolol Succinate 25 Mg Tab.Xl.24h) 50 mg PO BID [facility] Last Admin: 03/17/22 20:12 Dose: 50 mg Omeprazole (Omeprazole 20 Mg Capsule) 20 mg PO ACB [facility] Last Admin: 03/17/22 10:00 Dose: 20 mg Ondansetron HCl (Ondansetron 4 Mg/2 Ml Vial) 4 mg IV Q4HP PRN PRN Reason: Nausea And Vomiting Oxycodone HCl (Oxycodone Hcl 5 Mg Tablet) 5 mg PO Q6HP PRN; Protocol PRN Reason: Severe Pain Pneumococcal Polyvalent Vaccine (Pneumococcal 23-Ashley P-Sac Vac 0.5 Ml Syringe) 0.5 ml IM .ONCE ONE Stop: 03/18/22 10:01 Polyethylene Glycol (Polyethylene Glycol 3350 17 Gm Packet) 17 gm PO DAILYP PRN PRN Reason: Constipation Potassium Chloride (Potassium Chloride 20 Meq Tablet) 40 meq PO UD PRN PRN Reason: Potssium is 3-3.5 Potassium Chloride (Potassium Chloride 20 Meq Tablet) 40 meq PO UD PRN PRN Reason: Potassium < 3 Pramipexole Dihydrochloride (Pramipexole 0.25 Mg Tablet) 0.125 mg PO HS [facility] Last Admin: 03/17/22 20:11 Dose: 0.125 mg Senna (Sennosides 1 Tablet) 2 tab PO DAILYP PRN PRN Reason: Constipation Simvastatin (Simvastatin 20 Mg Tablet) 20 mg PO QPM [facility] Last Admin: 03/17/22 20:12 Dose: 20 mg Sodium Chloride (0.9 % Sodium Chloride 10 Ml Syringe) 10 ml IV Q8 [facility] Last Admin: 03/18/22 05:38 Dose: 10 ml Sodium Chloride (0.9 % Sodium Chloride 10 Ml Syringe) 10 ml IV Q8 [facility] Last Admin: 03/18/22 05:38 Dose: Not Given Spironolactone (Spironolactone 25 Mg Tablet) 12.5 mg PO QDAY [facility] Last Admin: 03/17/22 10:00 Dose: 12.5 mg Tramadol HCl (Tramadol 50 Mg Tablet) 50 mg PO QIDP PRN PRN Reason: Pain A/P Narrative A/P Narrative: A: *Acute on chronic hypercapnic Respiratory failure: -on bipap o/n, now on 3L [place] *AECOPD (on 3@home): on prednisone at home -Follows with Dr. Beltran -flu/covid/rsv neg *Encephalopathy, metabolic: 2/2 above, improved *Immunosuppressed: On chronic prednisone 2/2 COPD *Generalized weakness/deconditioning/FTT/falling: *Metabolic alkalosis: 2/2 chronic resp failure *?PIERO: *HTN: on BB/lasix/aldactnoe *DM w/neuropathy: -a1c 7.4 *Chronic pain: *GERD: *Obesity: BMI 30 *Hypomagnesemia: P: -f/u VBG -steroids (wean to home regimen) -nebs, IS/acapella, RT -empiric abx -Monitor/trend and replace electrolytes -cont BB/aldactone/lasix -basal and SSI -pt/ot -CM for placement -qhs cpap -Follow-up closely with Pulmonology, outpatient sleep study -ppx: apixaban / home ppi DNR Time Spent With Patient Time: Total time spent is greater than 50% in coordination of care (as documented) at patient's floor/unit and/or counseling patient: Subsequent: Total time with patient: 50 - 65 Minutes QUALITY VTE Deep Vein Thrombosis/Pulmonary Embolism Present on Admission: No
[2022-03-18] MEDS: FUROSEMIDE 20 MG TABLET PO SCH (08:12)
[2022-03-18] MEDS: METOPROLOL SUCCINATE 25 MG TAB.XL.24H PO SCH ×2 (08:12→21:11)
[2022-03-18] MEDS: DOCUSATE SODIUM 100 MG CAPSULE PO SCH ×2 (08:12→21:13)
[2022-03-18] MEDS: SPIRONOLACTONE 25 MG TABLET PO SCH (08:12)
[2022-03-18] MEDS: APIXABAN 5 MG TABLET PO SCH ×2 (08:12→21:11)
[2022-03-18] MEDS: GABAPENTIN 300 MG CAPSULE PO SCH ×3 (08:12→21:11)
[2022-03-18] MEDS: DULoxetine 30 MG CAPSULE PO SCH (08:13)
[2022-03-18] MEDS: INSULIN GLARGINE, HUMAN 1 UNIT/0.01 ML SQ SCH ×2 (08:13→21:16)
[2022-03-18] MEDS: INSULIN LISPRO 1 UNIT/0.01 ML UNIT SQ SCH ×4 (08:13→21:16)
[2022-03-18] MEDS: OMEPRAZOLE 20 MG CAPSULE PO SCH (08:14)
[2022-03-18] MEDS ORDERED: INSULIN GLARGINE, HUMAN 1 UNIT/0.01 ML SQ ONE (09:00)
[2022-03-18] MEDS ORDERED: PNEUMOCOCCAL 23-VAL P-SAC VAC 0.5 ML SYRINGE IM ONE (10:00)
--- NOTE | 2022-03-18 12:24 | Discharge Summary ---
Discharge Provider Provider IMPORTANT FOLLOW-UP INFORMATION FOR PCP: Patient information: Note initiated : 03/18/22 at 12:23 pm Service Date, if different from initiated Date: [] Patient: Ki Fontana a 66 y/o F admitted on 03/17/22 for weakness. Chief Complaint: [] Date of admission: 03/17/22 00:57 Primary care physician: Diana Arredondo Consults: 03/16/22 Consult to Physician [CONS] Stat Comment: Consulting Provider: Philip Stern Reason For Exam: Physician to Consult COURSE Hospital Course Hospital course: History of present illness: Ms. Elsa Bunch is a 66 year old F Presents the ED for increased weakness and failure to thrive. Patient says she just did not feel right and she stated to triage that she was having a COPD attack. Per EMS she has been having falls recently. She was mildly tachycardic in the ER and mildly tachypneic. Oxygen saturations were adequate but she was retaining CO2. And her pH was borderline low on VBG of 7.32. She had very mild leukocytosis 11.8. Elevated D-dimer and CTA showed no PE but severe emphysema. No infiltrates. It did show acute minimally displaced fracture of the posterior right first and second ribs. Metabolic alkalosis with this CO2 greater than 50. Per notes the daughter said that patient has a history of COPD exacerbations when her CO2 level gets high as her thinking is impaired. Family's been looking for a long-term for her [place]. Patient placed on BiPAP overnight. Feeling a little better. She does complain of shortness of breath wheezing and mild cough and some nausea. Sounds like she supposed to get a sleep study outpatient but has not done that yet. She does follow with Dr. Beltran. Was off BiPAP for a while this morning but needed to go back on BiPAP. f/u vbg. 03/18 Patient on CPAP overnight. Now on home regimen of nasal cannula oxygen. Patient feeling a little better. Does have cough and shortness of breath but improved. Metabolic alkalosis on labs. 03/19 Patient seems to be feeling better. O2 on home regimen. mild cough today Increase home insulin due to steroid use currently 03/20 Feeling well well this morning. No overnight event or new complaints plaints. Continues with mild cough but shortness of breath is near baseline. Blood glucose little better since increasing basal insulin. 03/21 Patient again doing well. No overnight event or new complaints. Blood glucose bit better today. Awaiting placement. A: *Acute on chronic hypercapnic Respiratory failure: *AECOPD (on 3@home): on prednisone at home -Follows with Dr. Beltran *Encephalopathy, metabolic: 2/2 above, improved *Immunosuppressed: On chronic prednisone 2/2 COPD *Generalized weakness/deconditioning/FTT/falling: *Metabolic alkalosis: 2/2 chronic resp failure *?PIERO: *HTN: on BB/lasix/aldactnoe *DM w/neuropathy: -a1c 7.4 *Chronic pain: *GERD: *Obesity: BMI 30 *Hypomagnesemia: P: -steroid taper -Follow-up closely with Pulmonology, outpatient sleep study Discharge diagnosis: Acute hypoxic hypercapnic respiratory failure COPD Secondary discharge diagnosis: Encephalopathy immunosuppressed generalized weakness metabolic alkalosis PIERO likely PIERO hypertension diabetes chronic pain GERD obesity Time Spent with Patient Time attestation: Total time spent providing and/or coordinating discharge services: Time spent: Greater than 30 minutes EXAM Constitutional Vitals: Temp Pulse Resp BP Pulse Ox O2 Del Method O2 Flow Rate 97.2 F 98 H 23 H 146/97 95 Nasal Cannula 2.5 03/18/22 07:00 03/18/22 09:22 03/18/22 09:22 03/18/22 06:01 03/18/22 09:22 03/18/22 09:22 03/18/22 09:22 Discharge Data Data Completed and Pending Labs on day of discharge: Labs from last 24 hours 03/18/22 03/17/22 05:05 14:29 POC VBG pH 7.51 H POC VBG pCO2 at Temp 64.2 H* POC VBG pO2 32 POC VBG HCO3 51.7 H* POC VBG Total CO2 > 50.0 H* POC Venous O2 Sat 65.0 POC VBG Base Excess 29.0 H* VBG Lactic Acid 2.6 H Sodium 137 Potassium 3.6 Chloride 88 L Carbon Dioxide 40 H Anion Gap 9.0 BUN 19 Creatinine 0.4 L GFR Calculation 109 Glucose 199 H Uric Acid 4.5 Calcium 8.6 Phosphorus 2.6 Magnesium 1.7 Total Bilirubin 0.4 Direct Bilirubin < 0.2 GGT 9 AST 28 ALT 15 Alkaline Phosphatase 55 Lactate Dehydrogenase 441 H Total Protein 5.2 L Albumin 3.5 Globulin 1.7 L Albumin/Globulin Ratio 2.1 Triglycerides 113 Preliminary micro results at discharge 03/16/22 22:32 Blood Culture - Preliminary Blood 03/16/22 22:18 Blood Culture - Preliminary Blood Discharge Plan Patient/Caregiver Discharge Instructions Activity: increase activity as tolerated Diet: Consistent Carbohydrate Prescriptions: New prednisone 10 mg tablet 40 mg PO QDAY Qty: 1 0RF Rx Instructions: Take 40mg once daily for 3 days then 30mg daily for 3 days then continue home regimen of 20mg daily thereafter. Continued Eliquis 5 mg tablet 5 mg PO BID metoprolol succinate 25 mg tablet extended release 24 hr 50 mg PO BID furosemide 20 mg tablet 20 mg PO QDAY spironolactone 25 mg tablet 12.5 mg PO QDAY insulin glargine [Lantus Solostar U-100 Insulin] 100 unit/mL (3 mL) insulin pen 15 unit subcut BID insulin aspart U-100 [Novolog FlexPen U-100 Insulin] 100 unit/mL (3 mL) insulin pen 1 sliding scale dose subcut ACHS metformin 1,000 mg tablet 1,000 mg PO BID simvastatin 20 mg tablet 20 mg PO QPM omeprazole 20 mg capsule,delayed release(DR/EC) 20 mg PO QDAY duloxetine 30 mg capsule,delayed release(DR/EC) 30 mg PO QAM pramipexole 0.125 mg tablet 0.125 mg PO QHS gabapentin 600 mg tablet 600 mg PO TID oxycodone 5 mg tablet 5 mg PO Q6HP PRN (Reason: Pain) tramadol 50 mg tablet 50 mg PO QID prednisone 10 mg tablet 20 mg PO QDAY albuterol sulfate 90 mcg/actuation HFA aerosol inhaler 2 puff inhalation Q4H PRN (Reason: Shortness Of Breath) acetaminophen 500 mg capsule 1,000 mg PO QID PRN (Reason: pain) calcium carbonate [Calcium 600] 600 mg calcium (1,500 mg) tablet 600 mg PO QDAY cholecalciferol (vitamin D3) 50 mcg (2,000 unit) tablet 50 mcg PO QDAY Follow Up Plan Follow up with: Holden Beltran MD [Physician] - (copd and possible need for cpap.) Diana Arredondo MD [Primary Care Provider] - Patient Disposition: Xfer SNF Prognosis: Fair Rehab Potential: Fair I certify that the patient requires SNF services: Yes Overall status at discharge: patient is progressing back to baseline QUALITY VTE Deep Vein Thrombosis/Pulmonary Embolism Present on Admission: No
[2022-03-18] MEDS: cefTRIAXone 1 GM VIAL IV SCH (12:51)
[2022-03-18] MEDS: AZITHROMYCIN 250 MG in DEXTROSE 5% IN WATER 250 ML IV SCH (12:51)
[2022-03-18] MEDS: ACETAMINOPHEN 325 MG TABLET PO PRN (15:08)
[2022-03-18] MEDS: methylPREDNISolone SOD SUCC 40 MG/ML VIAL IV SCH (15:08)
[2022-03-18] MEDS: SIMVASTATIN 20 MG TABLET PO SCH (21:11)
[2022-03-18] MEDS: PRAMIPEXOLE 0.25 MG TABLET PO SCH (21:12)
[2022-03-18] MEDS: oxyCODONE HCL 5 MG TABLET PO PRN (21:13)
[2022-03-19] MEDS: 0.9 % SODIUM CHLORIDE 10 ML SYRINGE IV SCH ×6 (00:36→22:29)
[2022-03-19] MEDS: methylPREDNISolone SOD SUCC 40 MG/ML VIAL IV SCH ×4 (00:37→22:29)
[2022-03-19] MEDS: LEVALBUTEROL 1.25 MG/3 ML AMPUL.NEB NEB SCH ×3 (02:01→17:17)
[2022-03-19 07:29] LABS: Blood Urea Nitrogen 23 mg/dL (8-23); Calcium 8.8 mg/dL (8.6-10.4); Carbon Dioxide 38 mmol/L (22-30); Chloride 91 mmol/L (96-108); Glomerular Filtration Rate 95; Glucose 156 mg/dL (70-105)
[2022-03-19] MEDS: OMEPRAZOLE 20 MG CAPSULE PO SCH (07:41)
[2022-03-19] MEDS: INSULIN LISPRO 1 UNIT/0.01 ML UNIT SQ SCH ×4 (07:41→22:31)
[2022-03-19] MEDS: traMADol 50 MG TABLET PO PRN ×2 (07:42→22:50)
[2022-03-19] MEDS: SPIRONOLACTONE 25 MG TABLET PO SCH (08:16)
[2022-03-19] MEDS: DULoxetine 30 MG CAPSULE PO SCH (08:16)
[2022-03-19] MEDS: GABAPENTIN 300 MG CAPSULE PO SCH ×3 (08:17→22:30)
[2022-03-19] MEDS: APIXABAN 5 MG TABLET PO SCH ×2 (08:17→22:30)
[2022-03-19] MEDS: METOPROLOL SUCCINATE 25 MG TAB.XL.24H PO SCH ×2 (08:17→22:30)
[2022-03-19] MEDS: FUROSEMIDE 20 MG TABLET PO SCH (08:17)
[2022-03-19] MEDS: INSULIN GLARGINE, HUMAN 1 UNIT/0.01 ML SQ SCH ×2 (08:18→22:31)
[2022-03-19] MEDS: DOCUSATE SODIUM 100 MG CAPSULE PO SCH ×2 (08:18→22:30)
--- NOTE | 2022-03-19 08:59 | Internal Med Progress Note ---
SUBJECTIVE Subjective Patient information: Note initiated : 03/19/22 at 8:57 am Service Date, if different from initiated Date: [] Patient: Ki Fontana a 66 y/o F admitted on 03/17/22 for weakness. Chief Complaint: [] Interval history: History of present illness: Ms. Elsa Bunch is a 66 year old F Presents the ED for increased weakness and failure to thrive. Patient says she just did not feel right and she stated to triage that she was having a COPD attack. Per EMS she has been having falls recently. She was mildly tachycardic in the ER and mildly tachypneic. Oxygen saturations were adequate but she was retaining CO2. And her pH was borderline low on VBG of 7.32. She had very mild leukocytosis 11.8. Elevated D-dimer and CTA showed no PE but severe emphysema. No infiltrates. It did show acute minimally displaced fracture of the posterior right first and second ribs. Metabolic alkalosis with this CO2 greater than 50. Per notes the daughter said that patient has a history of COPD exacerbations when her CO2 level gets high as her thinking is impaired. [place] [facility] [place]. Patient placed on BiPAP overnight. Feeling a little better. She does complain of shortness of breath wheezing and mild cough and some nausea. Sounds like she supposed to get a sleep study outpatient but has not done that yet. She does follow with Dr. Beltran. Was off BiPAP for a while this morning but needed to go back on BiPAP. f/u vbg. 03/18 Patient on CPAP overnight. Now on home regimen of nasal cannula oxygen. Patient feeling a little better. Does have cough and shortness of breath but improved. Metabolic alkalosis on labs. 03/19 Patient seems to be feeling better. O2 on home regimen. mild cough today Increase home insulin due to steroid use currently Review of Systems: denies headache/fever/chills/nausea/vomiting/chest or abdominal pain/diarrhea. Otherwise see above. Constitutional Vitals: Vital Signs Temp Pulse Resp BP Pulse Ox O2 Del Method O2 Flow Rate 97.7 F 91 H 18 150/107 95 Nasal Cannula 2 03/19/22 07:46 03/19/22 08:03 03/19/22 08:03 03/19/22 07:46 03/19/22 08:03 03/19/22 08:03 03/19/22 08:03 Period Temp Pulse Resp BP Sys/Vaca Pulse Ox O2 Del Method O2 Flow Rate Last 24 Hr 97.0 F-98.6 F 87-115 16 133-153/85-110 90-100 CPAP-Nasal Cannula 2-3 Intake and Output 03/18/22 03/19/22 03/19/22 19:59 03:59 11:59 Intake Total 250 450 Output Total 575 675 Balance -325 -225 Weight 72.575 kg Intake & Output: Intake & Output 03/18/22 03/19/22 03/19/22 19:59 03:59 11:59 Intake Total 250 450 Output Total 575 675 Balance -325 -225 Weight 72.575 kg Intake: IV 250 Zithromax 250 mg In Dextrose 5% 250 in Water 250 ml @ 250 mls/hr IV Q24H MEGAN Rx#:[id number] Oral 450 Output: Void Amount 575 675 Other: Meal Lunch Percent of Meal Consumed 50% Feeding Ability Independent Urine Appearance Clear Clear Clear Urine Color Yellow Yellow Yellow Urine Odor Normal Stool Size Small Stool Color Brown Stool Consistency Agnieszka # Bowel Movements 1 # of times incontinent of 0 Bowels Exam: General: Awake, no acute Distress, obese Eyes/N/T: EOMI, , Head/Neck: neck supple, CV: RRR, No murmurs, Pulm: diminished BS b/l now better aeration, no wheezing Abd: soft, nontender, +BS x4 Ext: no clubbing/cyanosis/edema Neuro: Alert, awake, Hard of hearing., no focal deficits, moves all extremities Skin: warm/dry OBJ DATA Labs 03/17/22 07:53 03/19/22 05:36 Labs: Abnormal Lab Results 03/19/22 03/18/22 03/17/22 05:36 05:05 14:29 WBC Hgb MCH MCHC RDW Immature Gran % (Auto) Neut % (Auto) Lymph % (Auto) Lymph # (Auto) [place] # (Auto) Immature Gran # Absolute Neutrophils D-Dimer POC VBG pH 7.51 H POC VBG pCO2 at Temp 64.2 H* POC VBG HCO3 51.7 H* POC VBG Total CO2 > 50.0 H* POC Venous O2 Sat POC VBG Base Excess 29.0 H* VBG Lactic Acid 2.6 H POC Chloride Chloride 91 L 88 L Carbon Dioxide 38 H 40 H POC Total CO2 Anion Gap 6.0 L POC BUN Creatinine 0.4 L Glucose 156 H 199 H POC Glucose Hemoglobin A1c POC WB Ioniz Calcium Magnesium Lactate Dehydrogenase 441 H C-Reactive Protein NT-Pro-B Natriuret Pep Total Protein 5.2 L Globulin 1.7 L Triglycerides 03/17/22 03/17/22 03/17/22 07:53 07:53 07:50 WBC Hgb 9.3 L MCH 21.8 L MCHC 26.6 L RDW 15.9 H Immature Gran % (Auto) 0.8 H Neut % (Auto) 90.6 H Lymph % (Auto) 7.4 L Lymph # (Auto) 0.69 L [place] # (Auto) Immature Gran # 0.07 H Absolute Neutrophils 8.44 H D-Dimer POC VBG pH POC VBG pCO2 at Temp POC VBG HCO3 POC VBG Total CO2 POC Venous O2 Sat POC VBG Base Excess VBG Lactic Acid POC Chloride Chloride 88 L Carbon Dioxide 39 H POC Total CO2 Anion Gap POC BUN Creatinine 0.5 L Glucose 316 H POC Glucose Hemoglobin A1c 7.4 H POC WB Ioniz Calcium Magnesium 1.4 L Lactate Dehydrogenase 531 H C-Reactive Protein 1.20 H NT-Pro-B Natriuret Pep Total Protein 5.7 L Globulin 2.1 L Triglycerides 163 H 03/17/22 03/16/22 03/16/22 07:50 21:19 21:15 WBC Hgb MCH MCHC RDW Immature Gran % (Auto) Neut % (Auto) Lymph % (Auto) Lymph # (Auto) [place] # (Auto) Immature Gran # Absolute Neutrophils D-Dimer POC VBG pH 7.49 H POC VBG pCO2 at Temp 59.7 H 112.0 H* POC VBG HCO3 45.5 H* 57.9 H* POC VBG Total CO2 47.0 H* > 50.0 H* POC Venous O2 Sat 74.0 H POC VBG Base Excess 22.0 H* > 30.0 H* VBG Lactic Acid POC Chloride 86 L Chloride Carbon Dioxide POC Total CO2 > 50.0 H* Anion Gap POC BUN 29 H Creatinine Glucose POC Glucose 118 H Hemoglobin A1c POC WB Ioniz Calcium 1.11 L Magnesium Lactate Dehydrogenase C-Reactive Protein NT-Pro-B Natriuret Pep Total Protein Globulin Triglycerides 03/16/22 03/16/22 03/16/22 21:05 21:05 21:05 WBC 11.8 H Hgb 10.3 L MCH 22.0 L MCHC 26.0 L RDW 16.0 H Immature Gran % (Auto) 0.6 H Neut % (Auto) Lymph % (Auto) 12.5 L Lymph # (Auto) 1.47 L [place] # (Auto) 0.98 H Immature Gran # 0.07 H Absolute Neutrophils 9.18 H D-Dimer 1.98 H POC VBG pH POC VBG pCO2 at Temp POC VBG HCO3 POC VBG Total CO2 POC Venous O2 Sat POC VBG Base Excess VBG Lactic Acid POC Chloride Chloride Carbon Dioxide POC Total CO2 Anion Gap POC BUN Creatinine Glucose POC Glucose Hemoglobin A1c POC WB Ioniz Calcium Magnesium Lactate Dehydrogenase C-Reactive Protein NT-Pro-B Natriuret Pep 4220.0 H Total Protein Globulin Triglycerides Meds: Medications Acetaminophen (Acetaminophen 325 Mg Tablet) 650 mg PO Q6HP PRN; Protocol PRN Reason: Per Pain Protocol/Fever > 101 Last Admin: 03/18/22 15:08 Dose: 650 mg Albuterol/Ipratropium (Ipratropium/Albuterol 3 Ml Ampul.Neb) 3 ml NEB Q4HP PRN PRN Reason: Shortness Of Breath Apixaban (Apixaban 5 Mg Tablet) 5 mg PO BID [facility] Last Admin: 03/19/22 08:17 Dose: 5 mg Ceftriaxone Sodium (Ceftriaxone 1 Gm Vial) 1 gm IV Q24H MEGAN; Protocol Last Admin: 03/18/22 12:51 Dose: 1 gm Dextrose (Dextrose 50% 50 Ml Vial) 0 ml IV UD PRN PRN Reason: Per Sliding Scale Diagnostic Test (Pha) (Accu-Chek 1 Each Strip) 1 each FS ACHS [facility] Last Admin: 03/19/22 07:14 Dose: 1 each Docusate Sodium (Docusate Sodium 100 Mg Capsule) 100 mg PO BID [facility] Last Admin: 03/19/22 08:18 Dose: 100 mg Duloxetine HCl (Duloxetine 30 Mg Capsule) 30 mg PO QAM [facility] Last Admin: 03/19/22 08:16 Dose: 30 mg Furosemide (Furosemide 20 Mg Tablet) 20 mg PO QDAY [facility] Last Admin: 03/19/22 08:17 Dose: 20 mg Gabapentin (Gabapentin 300 Mg Capsule) 600 mg PO TID [facility] Last Admin: 03/19/22 08:17 Dose: 600 mg Glucose (Dextrose 31 Gm Oral.Susp) 15 gm PO PRN PRN PRN Reason: Hypoglycemia Potassium Chloride 40 meq/ (Dextrose) 520 mls @ 130 mls/hr IV UD PRN PRN Reason: Potassium < 3 Magnesium Sulfate (Magnesium Sulfate) 2 gm in 50 mls @ 50 mls/hr IV UD PRN PRN Reason: Magnesium </= 1.6 Last Infusion: 03/17/22 11:40 Dose: Infused Insulin Glargine (Insulin Glargine, Human 1 Unit/0.01 Ml) 15 unit SQ BID [facility] Last Admin: 03/19/22 08:18 Dose: 15 units Insulin Human Lispro (Insulin Lispro 1 Unit/0.01 Ml Unit) 0 unit SQ ACHS [facility]; Protocol Last Admin: 03/19/22 07:41 Dose: 4 units Levalbuterol HCl (Levalbuterol 1.25 Mg/3 Ml Ampul.Neb) 1.25 mg NEB Q8H [facility] Last Admin: 03/19/22 07:55 Dose: 1.25 mg Methylprednisolone Sodium Succinate (Methylprednisolone Sod Succ 40 Mg/Ml Vial) 40 mg IV Q8 [facility] Last Admin: 03/19/22 05:20 Dose: 40 mg Metoprolol Succinate (Metoprolol Succinate 25 Mg Tab.Xl.24h) 50 mg PO BID [facility] Last Admin: 03/19/22 08:17 Dose: 50 mg Omeprazole (Omeprazole 20 Mg Capsule) 20 mg PO ACB [facility] Last Admin: 03/19/22 07:41 Dose: 20 mg Ondansetron HCl (Ondansetron 4 Mg/2 Ml Vial) 4 mg IV Q4HP PRN PRN Reason: Nausea And Vomiting Oxycodone HCl (Oxycodone Hcl 5 Mg Tablet) 5 mg PO Q6HP PRN; Protocol PRN Reason: Severe Pain Last Admin: 03/18/22 21:13 Dose: 5 mg Polyethylene Glycol (Polyethylene Glycol 3350 17 Gm Packet) 17 gm PO DAILYP PRN PRN Reason: Constipation Potassium Chloride (Potassium Chloride 20 Meq Tablet) 40 meq PO UD PRN PRN Reason: Potssium is 3-3.5 Potassium Chloride (Potassium Chloride 20 Meq Tablet) 40 meq PO UD PRN PRN Reason: Potassium < 3 Pramipexole Dihydrochloride (Pramipexole 0.25 Mg Tablet) 0.125 mg PO HS [facility] Last Admin: 03/18/22 21:12 Dose: 0.125 mg Senna (Sennosides 1 Tablet) 2 tab PO DAILYP PRN PRN Reason: Constipation Simvastatin (Simvastatin 20 Mg Tablet) 20 mg PO QPM [facility] Last Admin: 03/18/22 21:11 Dose: 20 mg Sodium Chloride (0.9 % Sodium Chloride 10 Ml Syringe) 10 ml IV Q8 [facility] Last Admin: 03/19/22 05:20 Dose: 10 ml Sodium Chloride (0.9 % Sodium Chloride 10 Ml Syringe) 10 ml IV Q8 [facility] Last Admin: 03/19/22 05:21 Dose: Not Given Spironolactone (Spironolactone 25 Mg Tablet) 12.5 mg PO QDAY [facility] Last Admin: 03/19/22 08:16 Dose: 12.5 mg Tramadol HCl (Tramadol 50 Mg Tablet) 50 mg PO QIDP PRN PRN Reason: Pain Last Admin: 03/19/22 07:42 Dose: 50 mg A/P Narrative A/P Narrative: A: *Acute on chronic hypercapnic Respiratory failure: -on bipap o/n, now on 2-3L NC *AECOPD (on 3@home): on prednisone at home -Follows with Dr. Beltran -flu/covid/rsv neg *Encephalopathy, metabolic: 2/2 above, improved *Immunosuppressed: On chronic prednisone 2/2 COPD *Generalized weakness/deconditioning/FTT/falling: *Metabolic alkalosis: 2/2 chronic resp failure *?PIERO: *HTN: on BB/lasix/aldactnoe *DM w/neuropathy: -a1c 7.4 *Chronic pain: *GERD: *Obesity: BMI 30 *Hypomagnesemia: P: -steroids (wean to home regimen) -nebs, IS/acapella, RT -empiric abx -Monitor/trend and replace electrolytes -cont BB/aldactone/lasix -basal increase today and SSI -pt/ot -CM for placement -qhs cpap -Follow-up closely with Pulmonology, outpatient sleep study -ppx: apixaban / home ppi DNR Time Spent With Patient Time: Total time spent is greater than 50% in coordination of care (as documented) at patient's floor/unit and/or counseling patient: Subsequent: Total time with patient: 35 - 49 minutes QUALITY VTE Deep Vein Thrombosis/Pulmonary Embolism Present on Admission: No
[2022-03-19] MEDS ORDERED: INSULIN GLARGINE, HUMAN 1 UNIT/0.01 ML SQ SCH (09:53)
[2022-03-19] MEDS: oxyCODONE HCL 5 MG TABLET PO PRN (12:40)
[2022-03-19] MEDS: cefTRIAXone 1 GM VIAL IV SCH (12:41)
[2022-03-19] MEDS: ACETAMINOPHEN 325 MG TABLET PO PRN (18:35)
[2022-03-19] MEDS: PRAMIPEXOLE 0.25 MG TABLET PO SCH (22:30)
[2022-03-19] MEDS: SIMVASTATIN 20 MG TABLET PO SCH (22:30)
[2022-03-20] MEDS: LEVALBUTEROL 1.25 MG/3 ML AMPUL.NEB NEB SCH ×3 (01:39→17:52)
[2022-03-20] MEDS: 0.9 % SODIUM CHLORIDE 10 ML SYRINGE IV SCH ×5 (01:39→22:09)
[2022-03-20] MEDS: OMEPRAZOLE 20 MG CAPSULE PO SCH (07:15)
[2022-03-20] MEDS: INSULIN LISPRO 1 UNIT/0.01 ML UNIT SQ SCH ×4 (07:25→22:08)
[2022-03-20] MEDS: traMADol 50 MG TABLET PO PRN (07:36)
[2022-03-20] MEDS: methylPREDNISolone SOD SUCC 40 MG/ML VIAL IV SCH (08:35)
[2022-03-20] MEDS: GABAPENTIN 300 MG CAPSULE PO SCH ×3 (08:35→22:07)
[2022-03-20] MEDS: METOPROLOL SUCCINATE 25 MG TAB.XL.24H PO SCH ×2 (08:35→22:07)
[2022-03-20] MEDS: APIXABAN 5 MG TABLET PO SCH ×2 (08:35→22:07)
[2022-03-20] MEDS: SPIRONOLACTONE 25 MG TABLET PO SCH (08:35)
[2022-03-20] MEDS: DULoxetine 30 MG CAPSULE PO SCH (08:35)
[2022-03-20] MEDS: FUROSEMIDE 20 MG TABLET PO SCH (08:35)
[2022-03-20] MEDS: DOCUSATE SODIUM 100 MG CAPSULE PO SCH ×2 (08:35→22:07)
[2022-03-20] MEDS: INSULIN GLARGINE, HUMAN 1 UNIT/0.01 ML SQ SCH ×2 (08:36→22:08)
--- NOTE | 2022-03-20 09:15 | Internal Med Progress Note ---
SUBJECTIVE Subjective Patient information: Note initiated : 03/20/22 at 9:14 am Service Date, if different from initiated Date: [] Patient: Ki Fontana a 66 y/o F admitted on 03/17/22 for weakness. Chief Complaint: [] Interval history: History of present illness: Ms. Elsa Bunch is a 66 year old F Presents the ED for increased weakness and failure to thrive. Patient says she just did not feel right and she stated to triage that she was having a COPD attack. Per EMS she has been having falls recently. She was mildly tachycardic in the ER and mildly tachypneic. Oxygen saturations were adequate but she was retaining CO2. And her pH was borderline low on VBG of 7.32. She had very mild leukocytosis 11.8. Elevated D-dimer and CTA showed no PE but severe emphysema. No infiltrates. It did show acute minimally displaced fracture of the posterior right first and second ribs. Metabolic alkalosis with this CO2 greater than 50. Per notes the daughter said that patient has a history of COPD exacerbations when her CO2 level gets high as her thinking is impaired. Family's been looking for a assisted for her [place]. Patient placed on BiPAP overnight. Feeling a little better. She does complain of shortness of breath wheezing and mild cough and some nausea. Sounds like she supposed to get a sleep study outpatient but has not done that yet. She does follow with Dr. Beltran. Was off BiPAP for a while this morning but needed to go back on BiPAP. f/u vbg. 03/18 Patient on CPAP overnight. Now on home regimen of nasal cannula oxygen. Patient feeling a little better. Does have cough and shortness of breath but improved. Metabolic alkalosis on labs. 03/19 Patient seems to be feeling better. O2 on home regimen. mild cough today Increase home insulin due to steroid use currently 03/20 Feeling well well this morning. No overnight event or new complaints plaints. Continues with mild cough but shortness of breath is near baseline. Blood glucose little better since increasing basal insulin. Review of Systems: denies headache/fever/chills/nausea/vomiting/chest or abdominal pain/diarrhea. Otherwise see above. Constitutional Vitals: Vital Signs Temp Pulse Resp BP Pulse Ox O2 Del Method O2 Flow Rate 97.4 F 88 16 128/86 97 Nasal Cannula 2.5 01/22/23 07:28 03/20/22 07:28 03/20/22 07:28 03/20/22 07:28 03/20/22 07:28 03/20/22 07:28 03/20/22 07:28 Period Temp Pulse Resp BP Sys/Vaca Pulse Ox O2 Del Method O2 Flow Rate Last 24 Hr 97.4 F-98.4 F 69-94 14-18 121-138/78-90 92-100 CPAP-Nasal Cannula 2.5-3 Intake and Output 03/19/22 03/20/22 03/20/22 19:59 03:59 11:59 Intake Total 480 980 Output Total 550 Balance 480 430 Weight 72.847 kg Intake & Output: Intake & Output 03/19/22 03/20/22 03/20/22 19:59 03:59 11:59 Intake Total 480 980 Output Total 550 Balance 480 430 Weight 72.847 kg Intake: Oral 480 980 Output: Void Amount 550 Other: Meal Lunch Breakfast Percent of Meal Consumed 75% 100% Feeding Ability Assist with Tray Set Up Independent Urine Appearance Clear Clear Urine Color Dark Yellow Dark Yellow Urine Odor Strong Strong # Voids 200 Exam: General: Awake, no acute Distress, obese Eyes/N/T: EOMI, , Head/Neck: neck supple, CV: RRR, No murmurs, Pulm: diminished BS b/l, no wheezing Abd: soft, nontender, +BS x4 Ext: no clubbing/cyanosis/edema Neuro: Alert, awake, Hard of hearing., no focal deficits, moves all extremities Skin: warm/dry OBJ DATA Labs 03/17/22 07:53 03/19/22 05:36 Labs: Abnormal Lab Results 03/19/22 03/18/22 03/17/22 05:36 05:05 14:29 POC VBG pH 7.51 H POC VBG pCO2 at Temp 64.2 H* POC VBG HCO3 51.7 H* POC VBG Total CO2 > 50.0 H* POC VBG Base Excess 29.0 H* VBG Lactic Acid 2.6 H Chloride 91 L 88 L Carbon Dioxide 38 H 40 H Anion Gap 6.0 L Creatinine 0.4 L Glucose 156 H 199 H Hemoglobin A1c Magnesium Lactate Dehydrogenase 441 H C-Reactive Protein Total Protein 5.2 L Globulin 1.7 L Triglycerides 03/17/22 03/17/22 07:53 07:50 POC VBG pH POC VBG pCO2 at Temp POC VBG HCO3 POC VBG Total CO2 POC VBG Base Excess VBG Lactic Acid Chloride 88 L Carbon Dioxide 39 H Anion Gap Creatinine 0.5 L Glucose 316 H Hemoglobin A1c 7.4 H Magnesium 1.4 L Lactate Dehydrogenase 531 H C-Reactive Protein 1.20 H Total Protein 5.7 L Globulin 2.1 L Triglycerides 163 H Meds: Medications Acetaminophen (Acetaminophen 325 Mg Tablet) 650 mg PO Q6HP PRN; Protocol PRN Reason: Per Pain Protocol/Fever > 101 Last Admin: 03/19/22 18:35 Dose: 650 mg Albuterol/Ipratropium (Ipratropium/Albuterol 3 Ml Ampul.Neb) 3 ml NEB Q4HP PRN PRN Reason: Shortness Of Breath Apixaban (Apixaban 5 Mg Tablet) 5 mg PO BID [facility] Last Admin: 03/20/22 08:35 Dose: 5 mg Ceftriaxone Sodium (Ceftriaxone 1 Gm Vial) 1 gm IV Q24H [facility]; Protocol Last Admin: 03/19/22 12:41 Dose: 1 gm Dextrose (Dextrose 50% 50 Ml Vial) 0 ml IV UD PRN PRN Reason: Per Sliding Scale Diagnostic Test (Pha) (Accu-Chek 1 Each Strip) 1 each FS ACHS [facility] Last Admin: 03/20/22 07:17 Dose: 1 each Docusate Sodium (Docusate Sodium 100 Mg Capsule) 100 mg PO BID [facility] Last Admin: 03/20/22 08:35 Dose: 100 mg Duloxetine HCl (Duloxetine 30 Mg Capsule) 30 mg PO QAM [facility] Last Admin: 03/20/22 08:35 Dose: 30 mg Furosemide (Furosemide 20 Mg Tablet) 20 mg PO QDAY [facility] Last Admin: 03/20/22 08:35 Dose: 20 mg Gabapentin (Gabapentin 300 Mg Capsule) 600 mg PO TID [facility] Last Admin: 03/20/22 08:35 Dose: 600 mg Glucose (Dextrose 31 Gm Oral.Susp) 15 gm PO PRN PRN PRN Reason: Hypoglycemia Potassium Chloride 40 meq/ (Dextrose) 520 mls @ 130 mls/hr IV UD PRN PRN Reason: Potassium < 3 Magnesium Sulfate (Magnesium Sulfate) 2 gm in 50 mls @ 50 mls/hr IV UD PRN PRN Reason: Magnesium </= 1.6 Last Infusion: 03/17/22 11:40 Dose: Infused Insulin Glargine (Insulin Glargine, Human 1 Unit/0.01 Ml) 15 unit SQ BID [facility] Last Admin: 03/20/22 08:36 Dose: 15 units Insulin Human Lispro (Insulin Lispro 1 Unit/0.01 Ml Unit) 0 unit SQ ACHS [facility]; Protocol Last Admin: 03/20/22 07:25 Dose: 4 units Levalbuterol HCl (Levalbuterol 1.25 Mg/3 Ml Ampul.Neb) 1.25 mg NEB Q8H [facility] Last Admin: 03/20/22 01:39 Dose: 1.25 mg Methylprednisolone Sodium Succinate (Methylprednisolone Sod Succ 40 Mg/Ml Vial) 40 mg IV BID [facility] Last Admin: 03/20/22 08:35 Dose: 40 mg Metoprolol Succinate (Metoprolol Succinate 25 Mg Tab.Xl.24h) 50 mg PO BID [facility] Last Admin: 03/20/22 08:35 Dose: 50 mg Omeprazole (Omeprazole 20 Mg Capsule) 20 mg PO ACB [facility] Last Admin: 03/20/22 07:15 Dose: 20 mg Ondansetron HCl (Ondansetron 4 Mg/2 Ml Vial) 4 mg IV Q4HP PRN PRN Reason: Nausea And Vomiting Oxycodone HCl (Oxycodone Hcl 5 Mg Tablet) 5 mg PO Q6HP PRN; Protocol PRN Reason: Severe Pain Last Admin: 03/19/22 12:40 Dose: 5 mg Polyethylene Glycol (Polyethylene Glycol 3350 17 Gm Packet) 17 gm PO DAILYP PRN PRN Reason: Constipation Potassium Chloride (Potassium Chloride 20 Meq Tablet) 40 meq PO UD PRN PRN Reason: Potssium is 3-3.5 Potassium Chloride (Potassium Chloride 20 Meq Tablet) 40 meq PO UD PRN PRN Reason: Potassium < 3 Pramipexole Dihydrochloride (Pramipexole 0.25 Mg Tablet) 0.125 mg PO HS [facility] Last Admin: 03/19/22 22:30 Dose: 0.125 mg Senna (Sennosides 1 Tablet) 2 tab PO DAILYP PRN PRN Reason: Constipation Simvastatin (Simvastatin 20 Mg Tablet) 20 mg PO QPM [facility] Last Admin: 03/19/22 22:30 Dose: 20 mg Sodium Chloride (0.9 % Sodium Chloride 10 Ml Syringe) 10 ml IV Q8 [facility] Last Admin: 03/20/22 06:24 Dose: 10 ml Sodium Chloride (0.9 % Sodium Chloride 10 Ml Syringe) 10 ml IV Q8 [facility] Last Admin: 03/20/22 06:28 Dose: Not Given Spironolactone (Spironolactone 25 Mg Tablet) 12.5 mg PO QDAY [facility] Last Admin: 03/20/22 08:35 Dose: 12.5 mg Tramadol HCl (Tramadol 50 Mg Tablet) 50 mg PO QIDP PRN PRN Reason: Pain Last Admin: 03/20/22 07:36 Dose: 50 mg A/P Narrative A/P Narrative: A: *Acute on chronic hypercapnic Respiratory failure: -on bipap o/n, now on 2-3L NC *AECOPD (on 3@home): on prednisone at home -Follows with Dr. Beltran -flu/covid/rsv neg *Encephalopathy, metabolic: 2/2 above, improved *Immunosuppressed: On chronic prednisone 2/2 COPD *Generalized weakness/deconditioning/FTT/falling: *Metabolic alkalosis: 2/2 chronic resp failure *?PIERO: *HTN: on BB/lasix/aldactnoe *DM w/neuropathy: -a1c 7.4 *Chronic pain: *GERD: *Obesity: BMI 30 *Hypomagnesemia: P: -steroids (wean to home regimen) -nebs, IS/acapella, RT -empiric abx -Monitor/trend and replace electrolytes -cont BB/aldactone/lasix -basal increase today and SSI -pt/ot -CM for placement -qhs cpap -Follow-up closely with Pulmonology, outpatient sleep study -ppx: apixaban / home ppi DNR Time Spent With Patient Time: Total time spent is greater than 50% in coordination of care (as documented) at patient's floor/unit and/or counseling patient: Subsequent: Total time with patient: 35 - 49 minutes QUALITY VTE Deep Vein Thrombosis/Pulmonary Embolism Present on Admission: No
[2022-03-20] MEDS: oxyCODONE HCL 5 MG TABLET PO PRN ×2 (11:04→19:13)
[2022-03-20] MEDS: cefTRIAXone 1 GM VIAL IV SCH (12:03)
[2022-03-20] MEDS: PRAMIPEXOLE 0.25 MG TABLET PO SCH (22:07)
[2022-03-20] MEDS: predniSONE 20 MG TABLET PO SCH (22:07)
[2022-03-20] MEDS: SIMVASTATIN 20 MG TABLET PO SCH (22:07)
[2022-03-21] MEDS: LEVALBUTEROL 1.25 MG/3 ML AMPUL.NEB NEB SCH ×3 (01:41→17:25)
[2022-03-21] MEDS: 0.9 % SODIUM CHLORIDE 10 ML SYRINGE IV SCH ×3 (06:50→20:52)
[2022-03-21] MEDS: INSULIN LISPRO 1 UNIT/0.01 ML UNIT SQ SCH ×4 (08:06→21:07)
[2022-03-21] MEDS: OMEPRAZOLE 20 MG CAPSULE PO SCH (08:06)
[2022-03-21] MEDS: predniSONE 20 MG TABLET PO SCH (08:07)
[2022-03-21] MEDS: oxyCODONE HCL 5 MG TABLET PO PRN ×2 (08:07→15:18)
[2022-03-21] MEDS: INSULIN GLARGINE, HUMAN 1 UNIT/0.01 ML SQ SCH ×2 (08:07→21:06)
[2022-03-21] MEDS: DULoxetine 30 MG CAPSULE PO SCH (08:07)
[2022-03-21] MEDS: APIXABAN 5 MG TABLET PO SCH ×2 (08:07→20:52)
[2022-03-21] MEDS: DOCUSATE SODIUM 100 MG CAPSULE PO SCH ×2 (08:08→20:52)
[2022-03-21] MEDS: FUROSEMIDE 20 MG TABLET PO SCH (08:08)
[2022-03-21] MEDS: METOPROLOL SUCCINATE 25 MG TAB.XL.24H PO SCH ×2 (08:08→20:52)
[2022-03-21] MEDS: SPIRONOLACTONE 25 MG TABLET PO SCH (08:08)
[2022-03-21] MEDS: GABAPENTIN 300 MG CAPSULE PO SCH ×3 (08:09→20:51)
--- NOTE | 2022-03-21 10:27 | Internal Med Progress Note ---
SUBJECTIVE Subjective Patient information: Note initiated : 03/21/22 at 10:25 am Service Date, if different from initiated Date: [] Patient: Ki Fontana a 66 y/o F admitted on 03/17/22 for weakness. Chief Complaint: [] Interval history: History of present illness: Ms. Elsa Bunch is a 66 year old F Presents the ED for increased weakness and failure to thrive. Patient says she just did not feel right and she stated to triage that she was having a COPD attack. Per EMS she has been having falls recently. She was mildly tachycardic in the ER and mildly tachypneic. Oxygen saturations were adequate but she was retaining CO2. And her pH was borderline low on VBG of 7.32. She had very mild leukocytosis 11.8. Elevated D-dimer and CTA showed no PE but severe emphysema. No infiltrates. It did show acute minimally displaced fracture of the posterior right first and second ribs. Metabolic alkalosis with this CO2 greater than 50. Per notes the daughter said that patient has a history of COPD exacerbations when her CO2 level gets high as her thinking is impaired. Family's been looking for a residential for her [place]. Patient placed on BiPAP overnight. Feeling a little better. She does complain of shortness of breath wheezing and mild cough and some nausea. Sounds like she supposed to get a sleep study outpatient but has not done that yet. She does follow with Dr. Beltran. Was off BiPAP for a while this morning but needed to go back on BiPAP. f/u vbg. 03/18 Patient on CPAP overnight. Now on home regimen of nasal cannula oxygen. Patient feeling a little better. Does have cough and shortness of breath but improved. Metabolic alkalosis on labs. 03/19 Patient seems to be feeling better. O2 on home regimen. mild cough today Increase home insulin due to steroid use currently 03/20 Feeling well well this morning. No overnight event or new complaints plaints. Continues with mild cough but shortness of breath is near baseline. Blood glucose little better since increasing basal insulin. 03/21 Patient again doing well. No overnight event or new complaints. Blood glucose bit better today. Awaiting placement. Review of Systems: denies headache/fever/chills/nausea/vomiting/chest or abdominal pain/diarrhea. Otherwise see above. Constitutional Vitals: Vital Signs Temp Pulse Resp BP Pulse Ox O2 Del Method O2 Flow Rate 98.1 F 72 16 129/90 96 Nasal Cannula 3 03/21/22 07:35 03/21/22 10:02 03/21/22 10:02 03/21/22 07:35 03/21/22 10:02 03/21/22 10:02 03/21/22 10:02 Period Temp Pulse Resp BP Sys/Vaca Pulse Ox O2 Del Method O2 Flow Rate Last 24 Hr 97.1 F-98.1 F 71-94 16-20 123-145/70-93 94-100 CPAP-Room Air 3-3 Intake and Output 03/20/22 03/21/22 03/21/22 19:59 03:59 11:59 Intake Total 720 900 Output Total 700 1000 Balance 20 -100 Weight 73.346 kg Intake & Output: Intake & Output 03/20/22 03/21/22 03/21/22 19:59 03:59 11:59 Intake Total 720 900 Output Total 700 1000 Balance 20 -100 Weight 73.346 kg Intake: Oral 720 900 Output: Void Amount 700 1000 Other: Meal Lunch Breakfast Percent of Meal Consumed 75% 100% Feeding Ability Independent Assist with Tray Set Up Urine Appearance Clear Clear Urine Color Yellow Yellow Urine Odor Normal Stool Size Moderate Stool Color Brown Stool Consistency Formed Exam: General: Awake, no acute Distress, obese Eyes/N/T: EOMI, , Head/Neck: neck supple, CV: RRR, No murmurs, Pulm: diminished BS b/l, no wheezing Abd: soft, nontender, +BS x4 Ext: no clubbing/cyanosis/edema Neuro: Alert, awake, Hard of hearing., no focal deficits, moves all extremities Skin: warm/dry OBJ DATA Labs 03/17/22 07:53 03/19/22 05:36 Labs: Abnormal Lab Results 03/19/22 05:36 Chloride 91 L Carbon Dioxide 38 H Anion Gap 6.0 L Glucose 156 H Meds: Medications Acetaminophen (Acetaminophen 325 Mg Tablet) 650 mg PO Q6HP PRN; Protocol PRN Reason: Per Pain Protocol/Fever > 101 Last Admin: 03/19/22 18:35 Dose: 650 mg Albuterol/Ipratropium (Ipratropium/Albuterol 3 Ml Ampul.Neb) 3 ml NEB Q4HP PRN PRN Reason: Shortness Of Breath Apixaban (Apixaban 5 Mg Tablet) 5 mg PO BID [facility] Last Admin: 03/21/22 08:07 Dose: 5 mg Dextrose (Dextrose 50% 50 Ml Vial) 0 ml IV UD PRN PRN Reason: Per Sliding Scale Diagnostic Test (Pha) (Accu-Chek 1 Each Strip) 1 each FS [facility] Last Admin: 03/21/22 08:06 Dose: 1 each Docusate Sodium (Docusate Sodium 100 Mg Capsule) 100 mg PO BID [facility] Last Admin: 03/21/22 08:08 Dose: 100 mg Duloxetine HCl (Duloxetine 30 Mg Capsule) 30 mg PO QAM [facility] Last Admin: 03/21/22 08:07 Dose: 30 mg Furosemide (Furosemide 20 Mg Tablet) 20 mg PO QDAY [facility] Last Admin: 03/21/22 08:08 Dose: 20 mg Gabapentin (Gabapentin 300 Mg Capsule) 600 mg PO TID [facility] Last Admin: 03/21/22 08:09 Dose: 600 mg Glucose (Dextrose 31 Gm Oral.Susp) 15 gm PO PRN PRN PRN Reason: Hypoglycemia Potassium Chloride 40 meq/ (Dextrose) 520 mls @ 130 mls/hr IV UD PRN PRN Reason: Potassium < 3 Magnesium Sulfate (Magnesium Sulfate) 2 gm in 50 mls @ 50 mls/hr IV UD PRN PRN Reason: Magnesium </= 1.6 Last Infusion: 03/17/22 11:40 Dose: Infused Insulin Glargine (Insulin Glargine, Human 1 Unit/0.01 Ml) 15 unit SQ BID [facility] Last Admin: 03/21/22 08:07 Dose: 15 units Insulin Human Lispro (Insulin Lispro 1 Unit/0.01 Ml Unit) 0 unit SQ [facility]; Protocol Last Admin: 03/21/22 08:06 Dose: Not Given Levalbuterol HCl (Levalbuterol 1.25 Mg/3 Ml Ampul.Neb) 1.25 mg NEB Q8H [facility] Last Admin: 03/21/22 10:01 Dose: 1.25 mg Metoprolol Succinate (Metoprolol Succinate 25 Mg Tab.Xl.24h) 50 mg PO BID [facility] Last Admin: 03/21/22 08:08 Dose: 50 mg Omeprazole (Omeprazole 20 Mg Capsule) 20 mg PO ACB [facility] Last Admin: 03/21/22 08:06 Dose: 20 mg Ondansetron HCl (Ondansetron 4 Mg/2 Ml Vial) 4 mg IV Q4HP PRN PRN Reason: Nausea And Vomiting Oxycodone HCl (Oxycodone Hcl 5 Mg Tablet) 5 mg PO Q6HP PRN; Protocol PRN Reason: Severe Pain Last Admin: 03/21/22 08:07 Dose: 5 mg Polyethylene Glycol (Polyethylene Glycol 3350 17 Gm Packet) 17 gm PO DAILYP PRN PRN Reason: Constipation Last Admin: 03/20/22 13:58 Dose: 17 gm Potassium Chloride (Potassium Chloride 20 Meq Tablet) 40 meq PO UD PRN PRN Reason: Potssium is 3-3.5 Potassium Chloride (Potassium Chloride 20 Meq Tablet) 40 meq PO UD PRN PRN Reason: Potassium < 3 Pramipexole Dihydrochloride (Pramipexole 0.25 Mg Tablet) 0.125 mg PO HS [facility] Last Admin: 03/20/22 22:07 Dose: 0.125 mg Prednisone (Prednisone 20 Mg Tablet) 40 mg PO BID [facility] Last Admin: 03/21/22 08:07 Dose: 40 mg Senna (Sennosides 1 Tablet) 2 tab PO DAILYP PRN PRN Reason: Constipation Simvastatin (Simvastatin 20 Mg Tablet) 20 mg PO QPM [facility] Last Admin: 03/20/22 22:07 Dose: 20 mg Sodium Chloride (0.9 % Sodium Chloride 10 Ml Syringe) 10 ml IV Q8 [facility] Last Admin: 03/21/22 06:50 Dose: 10 ml Spironolactone (Spironolactone 25 Mg Tablet) 12.5 mg PO QDAY [facility] Last Admin: 03/21/22 08:08 Dose: 12.5 mg Tramadol HCl (Tramadol 50 Mg Tablet) 50 mg PO QIDP PRN PRN Reason: Pain Last Admin: 03/20/22 07:36 Dose: 50 mg A/P Narrative A/P Narrative: A: *Acute on chronic hypercapnic Respiratory failure: -on bipap o/n, now on 2-3L NC *AECOPD (on 3@home): on prednisone at home -Follows with Dr. Beltran -flu/covid/rsv neg *Encephalopathy, metabolic: 2/2 above, improved *Immunosuppressed: On chronic prednisone 2/2 COPD *Generalized weakness/deconditioning/FTT/falling: *Metabolic alkalosis: 2/2 chronic resp failure *?PIERO: *HTN: on BB/lasix/aldactnoe *DM w/neuropathy: -a1c 7.4 *Chronic pain: *GERD: *Obesity: BMI 30 *Hypomagnesemia: P: -steroids (wean to home regimen) -nebs, IS/acapella, RT -empiric abx dc -Monitor/trend and replace electrolytes -cont BB/aldactone/lasix -basal increase today and SSI -pt/ot -CM for placement -qhs cpap -Follow-up closely with Pulmonology, outpatient sleep study -ppx: apixaban / home ppi DNR Time Spent With Patient Time: Total time spent is greater than 50% in coordination of care (as documented) at patient's floor/unit and/or counseling patient: QUALITY VTE Deep Vein Thrombosis/Pulmonary Embolism Present on Admission: No
[2022-03-21] MEDS: SIMVASTATIN 20 MG TABLET PO SCH (20:52)
[2022-03-21] MEDS: PRAMIPEXOLE 0.25 MG TABLET PO SCH (20:52)
[2022-03-21] MEDS: traMADol 50 MG TABLET PO PRN (21:05)
[2022-03-22] MEDS: LEVALBUTEROL 1.25 MG/3 ML AMPUL.NEB NEB SCH ×2 (01:18→09:25)
[2022-03-22] MEDS: 0.9 % SODIUM CHLORIDE 10 ML SYRINGE IV SCH (05:47)
[2022-03-22] MEDS: traMADol 50 MG TABLET PO PRN ×2 (05:48→12:44)
[2022-03-22] MEDS: OMEPRAZOLE 20 MG CAPSULE PO SCH (07:39)
[2022-03-22] MEDS: INSULIN LISPRO 1 UNIT/0.01 ML UNIT SQ SCH ×2 (07:40→11:15)
[2022-03-22] MEDS ORDERED: predniSONE 20 MG TABLET PO SCH (08:00)
[2022-03-22] MEDS: SPIRONOLACTONE 25 MG TABLET PO SCH (08:12)
[2022-03-22] MEDS: DOCUSATE SODIUM 100 MG CAPSULE PO SCH (08:13)
[2022-03-22] MEDS: GABAPENTIN 300 MG CAPSULE PO SCH (08:13)
[2022-03-22] MEDS: METOPROLOL SUCCINATE 25 MG TAB.XL.24H PO SCH (08:13)
[2022-03-22] MEDS: FUROSEMIDE 20 MG TABLET PO SCH (08:14)
[2022-03-22] MEDS: INSULIN GLARGINE, HUMAN 1 UNIT/0.01 ML SQ SCH (08:14)
[2022-03-22] MEDS: APIXABAN 5 MG TABLET PO SCH (08:14)
[2022-03-22] MEDS: DULoxetine 30 MG CAPSULE PO SCH (08:14)
--- NOTE | 2022-03-22 09:09 | Discharge Summary ---
Discharge Provider Provider IMPORTANT FOLLOW-UP INFORMATION FOR PCP: 1. F/u with pulmonary (Dr. Beltran) Patient information: Note initiated : 03/22/22 at 9:06 am Service Date, if different from initiated Date: [] Patient: Ki Fontana 66 y/o F admitted on 03/17/22 for weakness. Chief Complaint: [Falls] Date of admission: 03/17/22 00:57 Discharge date: 03/22/22 Primary care physician: Diana Arredondo Admitting clinician: Philip Stern Consults: 03/16/22 Consult to Physician [CONS] Stat Comment: Consulting Provider: Philip Stern Reason For Exam: Physician to Consult Attending physician on discharge: Jasmit Queenie COURSE Hospital Course Hospital course: History of present illness: Ms. Elsa Bunch is a 66 year old F Presents the ED for increased weakness and failure to thrive. Patient says she just did not feel right and she stated to triage that she was having a COPD attack. Per EMS she has been having falls recently. She was mildly tachycardic in the ER and mildly tachypneic. Oxygen saturations were adequate but she was retaining CO2. And her pH was borderline low on VBG of 7.32. She had very mild leukocytosis 11.8. Elevated D-dimer and CTA showed no PE but severe emphysema. No infiltrates. It did show acute minimally displaced fracture of the posterior right first and second ribs. Metabolic alkalosis with this CO2 greater than 50. Per notes the daughter said that patient has a history of COPD exacerbations when her CO2 level gets high as her thinking is impaired. Family's been looking for a fci for her [place]. Patient placed on BiPAP overnight. Feeling a little better. She does complain of shortness of breath wheezing and mild cough and some nausea. Sounds like she supposed to get a sleep study outpatient but has not done that yet. She does follow with Dr. Beltran. Was off BiPAP for a while this morning but needed to go back on BiPAP. f/u vbg. 03/18 Patient on CPAP overnight. Now on home regimen of nasal cannula oxygen. Patient feeling a little better. Does have cough and shortness of breath but improved. Metabolic alkalosis on labs. 03/19 Patient seems to be feeling better. O2 on home regimen. mild cough today Increase home insulin due to steroid use currently 03/20 Feeling well well this morning. No overnight event or new complaints plaints. Continues with mild cough but shortness of breath is near baseline. Blood glucose little better since increasing basal insulin. 03/21 Patient again doing well. No overnight event or new complaints. Blood glucose bit better today. Awaiting placement. Discharge diagnosis: Acute on chronic hypercapnic respiratory failure, COPD exacerbation Time Spent with Patient Time attestation: Total time spent providing and/or coordinating discharge services: Time spent: Greater than 30 minutes EXAM Constitutional Vitals: Temp Pulse Resp BP Pulse Ox O2 Del Method O2 Flow Rate 98.2 F 78 18 140/97 100 Nasal Cannula 3 03/22/22 07:16 03/22/22 07:16 03/22/22 07:16 03/22/22 07:16 03/22/22 07:16 03/22/22 07:16 03/22/22 07:16 General appearance: average body habitus Head Head exam: Present atraumatic, normal inspection and normocephalic Eye Eye exam: Present EOMI, normal appearance and PERRL; Absent conjunctival injection ENT ENT exam: Present normal exam; Absent mucous membranes dry Neck Neck exam: Present full ROM; Absent lymphadenopathy Respiratory Respiratory exam: Present normal respiratory exam and CTAB; Absent decreased breath sounds, respiratory distress or wheezes Cardiovascular Cardiovascular exam: Present normal rate and rhythm and RRR; Absent JVD GI/Abdominal GI/Abdominal exam: Present normal bowel sounds and soft; Absent diminished bowel sounds, distended, guarding, mass, rebound or tenderness Neurological Exam Neurological exam: Present alert, CN II-XII intact and oriented X3 Psychiatric Psychiatric exam: Present normal affect and normal mood Skin Skin exam: Present intact and warm; Absent erythema, pallor, petechiae or rash Discharge Plan Patient/Caregiver Discharge Instructions Activity: increase activity as tolerated Diet: Consistent Carbohydrate Instructions: COPD (Chronic Obstructive Pulmonary Disease) (ED), Chronic Lung Disease and Infection Prevention (DC), Pulmonary Rehabilitation (DC), Dyspnea Scale and Exercise (GEN) Prescriptions: New prednisone 10 mg tablet 40 mg PO QDAY Qty: 1 0RF Rx Instructions: Take 40mg once daily for 3 days then 30mg daily for 3 days then continue home regimen of 20mg daily thereafter. Continued Eliquis 5 mg tablet 5 mg PO BID metoprolol succinate 25 mg tablet extended release 24 hr 50 mg PO BID furosemide 20 mg tablet 20 mg PO QDAY spironolactone 25 mg tablet 12.5 mg PO QDAY insulin glargine [Lantus Solostar U-100 Insulin] 100 unit/mL (3 mL) insulin pen 15 unit subcut BID insulin aspart U-100 [Novolog FlexPen U-100 Insulin] 100 unit/mL (3 mL) insulin pen 1 sliding scale dose subcut ACHS metformin 1,000 mg tablet 1,000 mg PO BID simvastatin 20 mg tablet 20 mg PO QPM omeprazole 20 mg capsule,delayed release(DR/EC) 20 mg PO QDAY duloxetine 30 mg capsule,delayed release(DR/EC) 30 mg PO QAM pramipexole 0.125 mg tablet 0.125 mg PO QHS gabapentin 600 mg tablet 600 mg PO TID oxycodone 5 mg tablet 5 mg PO Q6HP PRN (Reason: Pain) tramadol 50 mg tablet 50 mg PO QID prednisone 10 mg tablet 20 mg PO QDAY albuterol sulfate 90 mcg/actuation HFA aerosol inhaler 2 puff inhalation Q4H PRN (Reason: Shortness Of Breath) acetaminophen 500 mg capsule 1,000 mg PO QID PRN (Reason: pain) calcium carbonate [Calcium 600] 600 mg calcium (1,500 mg) tablet 600 mg PO QDAY cholecalciferol (vitamin D3) 50 mcg (2,000 unit) tablet 50 mcg PO QDAY Follow Up Plan Follow up with: Holden Beltran MD [Physician] - (copd and possible need for cpap.) Diana Arredondo MD [Primary Care Provider] - Patient Disposition: Xfer SNF Prognosis: Fair Rehab Potential: Fair I certify that the patient requires SNF services: Yes Overall status at discharge: patient is progressing back to baseline Discharge Orders: Discharge Order (Routine); Ordered 03/22/22 Ordered By: Oswaldo YADAV VTE Deep Vein Thrombosis/Pulmonary Embolism Present on Admission: No
== END 2022-03-22 13:10 | DRG 189 ==
LOC: ED 19:52 → ICU 03-17 00:57 → MEDSUR 03-18 17:32
PROVIDERS: ADMIT Internal Medicine; ATTEND Internal Medicine